=== PATIENT | male | born 1955 | race African-American/Black ===

== ENCOUNTER 2016-04-28 12:28 | Observation (INO) | payer OTHER ==
--- NOTE | 2016-04-28 12:46 | ER Document Report ---
ED Medical Screen (RME) - General Chief Complaint: Leg Swelling Stated Complaint: LEG SWELLING Time seen by provider: 12:42 Mode of Arrival: Wheelchair Information source: Patient Notes: 60-year-old male presents to ED for bilateral leg swelling. He states he went to the [place] on the for an exam and [facility] work[facility] and stated that he needed to go to the emergency room for follow-up for his blood work. He denies diabetes or blood clots. He has a BNP of 134.68 with a normal of 0-60. I have greeted and performed a rapid initial assessment of this patient. A comprehensive ED assessment and evaluation of the patient, analysis of test results and completion of medical decision making process will be conducted by an additional ED providers. Physical Exam - Vital signs Vitals: Temp Pulse Resp BP Pulse Ox 98.4 F 79 18 104/74 100 04/28/16 12:34 04/28/16 12:34 04/28/16 12:34 04/28/16 12:34 04/28/16 12:34 Course - Vital Signs Vital signs: Temp Pulse Resp BP Pulse Ox 98.4 F 79 18 104/74 100 04/28/16 12:34 04/28/16 12:34 04/28/16 12:34 04/28/16 12:34 04/28/16 12:34
[2016-04-28 13:44] LABS: HEMATOCRIT 23.6 % (37.9-51.0); HGB HCT DIFFERENCE -1.1; MEAN CORPUSCULAR HEMOGLOBIN 31.1 pg (27.0-33.4); MEAN CORPUSCULAR HGB CONC 31.8 g/dL (32.0-36.0); MEAN CORPUSCULAR VOLUME 98 fl (80-97); RED BLOOD COUNT 2.42 10^6/uL (4.35-5.55); RED CELL DISTRIBUTION WIDTH 32.6 % (11.5-14.0); WHITE BLOOD COUNT 5.7 10^3/uL (4.0-10.5)
[2016-04-28 13:49] LABS: ALANINE AMINOTRANSFERASE 36 U/L (21-72); ALBUMIN 2.7 g/dL (3.5-5.0); ALKALINE PHOSPHATASE 229 U/L (38-126); ANION GAP 14 (5-19); ASPARTATE AMINO TRANSFERASE 76 U/L (17-59); BILIRUBIN,DIRECT 0.4 mg/dL (0.0-0.3); BILIRUBIN,TOTAL 1.3 mg/dL (0.2-1.3); BLOOD UREA NITROGEN 6 mg/dL (7-20); CALCIUM 8.5 mg/dL (8.4-10.2); CARBON DIOXIDE 26 mmol/L (22-30); CHLORIDE 85 mmol/L (98-107); CREATINE KINASE 30 U/L (55-170); CREATININE RESULT 0.73 mg/dL (0.52-1.25); GLUCOSE 84 mg/dL (75-110); POTASSIUM 4.4 mmol/L (3.6-5.0); SODIUM 125.4 mmol/L (137-145); TOTAL PROTEIN 5.4 g/dL (6.3-8.2)
[2016-04-28 14:01] LABS: CREATINE KINASE MB 0.38 ng/mL (<4.55)
[2016-04-28 14:02] LABS: TROPONIN I < 0.012 ng/mL
[2016-04-28 14:13] LABS: HEMOGLOBIN 7.5 g/dL (13.5-17.0)
[2016-04-28 14:22] LABS: ANISOCYTOSIS 4+; BASOPHILS % (MANUAL) 1 % (0-2); EOSINOPHILS % (MANUAL) 0 % (0-6); HYPOCHROMASIA 1+; LYMPHOCYTES % (MANUAL) 24 % (13-45); TOTAL CELLS COUNTED 100
[2016-04-28 14:23] LABS: POIKILOCYTOSIS 2+; POLYCHROMASIA SLIGHT; ROULEAUX SLIGHT; SCHISTOCYTES 1+; TARGET CELLS SLIGHT
[2016-04-28 14:24] LABS: HOWELL-JOLLY BODIES PRESENT; TOXIC GRANULATION SLIGHT
--- NOTE | 2016-04-28 14:46 | ER Document Report ---
ED General - General Chief Complaint: Leg Swelling Stated Complaint: LEG SWELLING Mode of Arrival: Wheelchair Information source: Patient Notes: Patient presents to the emergency department with complaints of lower extremity swelling. [facility] and told he needed to come to the emergency department because his labs were "all over the place ". Patient presents with a copy of labs completed April 21. Increased doses of Lasix twice. He denies shortness of breath with exertion. Patient denies chest pain difficulty breathing. Reports he's had swelling of his lower extremities for a month. He reports history of anemia high blood pressure knee replacement and ankle and shoulder pain. TRAVEL OUTSIDE OF THE [place] IN LAST 30 DAYS: No - HPI Onset: Other Onset/Duration: Persistent Quality of pain: Pressure Pain Level: 3 Associated symptoms: None Exacerbated by: Denies Relieved by: Denies Similar symptoms previously: Yes Recently seen / treated by doctor: Yes - Related Data Allergies/Adverse Reactions: No Known Allergies Allergy (Unverified 04/28/16 12:45) Past Medical History - General Information source: Patient - Social History Smoking Status: Current Every Day Smoker Cigarette use (# per day): Yes - 02/04 ppd Chew tobacco use (# tins/day): No Frequency of alcohol use: Heavy Drug Abuse: None Lives with: Alone Family History: DM, Thyroid Disfunction Patient has suicidal ideation: No Patient has homicidal ideation: No - Medical History Medical History: Other - anemia - Past Medical History Cardiac Medical History: Reports: Hx Hypertension Renal/ Medical History: Denies: Hx Peritoneal Dialysis Past Surgical History: Reports: Hx Orthopedic Surgery Review of Systems - Review of Systems Notes: Review HPI for review of systems., All other systems negative Physical Exam - Vital signs Vitals: Temp Pulse Resp BP Pulse Ox 98.4 F 79 18 104/74 100 04/28/16 12:34 04/28/16 12:34 04/28/16 12:34 04/28/16 12:34 04/28/16 12:34 - Notes Notes: PHYSICAL EXAMINATION: GENERAL: Well-appearing and in no acute distress nontoxic looking, happy HEAD: Atraumatic, normocephalic. EYES: Pupils equal round extraocular movements intact, sclera anicteric, conjunctiva are normal. ENT: nares patent, Moist mucous membranes. NECK: Normal range of motion, supple without lymphadenopathy LUNGS: CTAB and equal. No wheezes rales or rhonchi. no cough, speaks in clear voice HEART: Regular rate and rhythm without murmurs ABDOMEN: Soft, no tenderness. No guarding, no rebound BACK: Denies pain EXTREMITIES: Normal range of motion, 3+ pitting edema bilaterally from knee down. No cyanosis. NEUROLOGICAL: Cranial nerves grossly intact. Normal sensory/motor PSYCH: Normal mood, normal affect. SKIN: Warm, Dry, normal turgor, facial francois color Course - Re-evaluation Re-evalutation: 04/28/16 15:24 I have consulted the attending provider Dr Thorne per [facility] guidelines I contacted the [place] for previous labs, spoke with echo barber, she reports last h/h 7.6/23.9 yesterday, before that his H&H was 12.3 and 39.4 on May 2015. 04/28/16 16:[address] Damon, he agrees patient should be admitted with type/screen and requested iron studies. Consult to Dr. Gudino who agrees to admit patient to telemetry obs. Patient informed of plan of care. - Vital Signs Vital signs: Temp Pulse Resp BP Pulse Ox 98.4 F 79 18 104/74 100 04/28/16 12:34 04/28/16 12:34 04/28/16 12:34 04/28/16 12:34 04/28/16 12:34 - Laboratory Result Diagrams: 04/28/16 12:50 04/28/16 12:50 Laboratory results interpreted by me: 04/28/16 04/28/16 12:50 12:50 RBC 2.42 L Hgb 7.5 L Hct 23.6 L MCV 98 H MCHC 31.8 L RDW 32.6 H Sodium 125.4 L Chloride 85 L BUN 6 L Direct Bilirubin 0.4 H AST 76 H Alkaline Phosphatase 229 H Creatine Kinase 30 L Total Protein 5.4 L Albumin 2.7 L Discharge - Discharge Clinical Impression: Hyponatremia, bilateral peripheral edema Anemia Qualifiers: Anemia type: unspecified type Qualified Code(s): D64.9 - Anemia, unspecified Condition: Stable Disposition: ADMITTED OBSERVATION Admitting Provider: Hospitalist - Dr. Gudino Unit Admitted: Telemetry
[2016-04-28] MEDS ORDERED: NORMAL SALINE 250 ML IV PRN ×2 (16:35)
[2016-04-28] MEDS ORDERED: LORAZEPAM INJ 2 MG/1 ML VIAL IV PRN (16:36)
[2016-04-28] MEDS ORDERED: ACETAMINOPHEN 325 MG TABLET PO PRN (16:37)
[2016-04-28] MEDS ORDERED: ONDANSETRON HCL INJ/PF 4 MG/2 ML SDV IV PRN (16:37)
[2016-04-28] MEDS ORDERED: TRAMADOL HCL 50 MG TABLET PO PRN (17:14)
[2016-04-28 17:21] LABS: FOLATE 1.79 ng/mL (>2.76)
--- NOTE | 2016-04-28 17:27 | PDOC H&P ---
History of Present Illness Admission Date/PCP: [facility] Patient complains of: Abnormal labs History of Present Illness: CHARLES LEVY is a 60 year old male that was sent to the emergency department from the [facility] in [facility] for abnormal labs. Specifically he has worsening of chronic anemia and also low-sodium. He was also noted to have 1-2 year history of worsening bilateral lower extremity edema for which he takes Lasix 40 mg daily. Patient has no specific complaints. In review of his past history as mentioned he is chronically anemic. He has had Hemoccult-negative stools at both the [facility] and our facility. He has never been scheduled for an EGD or colonoscopy in the past. He has never been told this specific cause of his anemia. He has never seen a field service specialist. He does smoke and drink heavily. He denies weight loss. Medications listed below have not been verified at the time of this documentation. Past Medical History Cardiac Medical History: Reports: Hypertension, Other - Edema Psychiatric Medical History: Reports: Alcohol Dependency, Tobacco Dependency Hematology: Reports: Anemia Past Surgical History Past Surgical History: Reports: Orthopedic Surgery - Right total knee arthroplasty Social History Information Source: Patient Lives with: Spouse/Significant other Smoking Status: Current Every Day Smoker Frequency of Alcohol Use: Heavy Hx Recreational Drug Use: No Hx Prescription Drug Abuse: No - Advance Directive Resuscitation Status: Full Code Surrogate healthcare decision maker:: Family History Family History: DM, Thyroid Disfunction Parental Family History Reviewed: Yes Children Family History Reviewed: Yes Sibling(s) Family History Reviewed.: Yes Medication/Allergy Allergies/Adverse Reactions: No Known Allergies Allergy (Unverified 04/28/16 12:45) Review of Systems Constitutional: ABSENT: chills, fever(s), headache(s), weight gain, weight loss Eyes: ABSENT: visual disturbances Ears: ABSENT: hearing changes Cardiovascular: PRESENT: edema. ABSENT: chest pain, dyspnea on exertion, orthropnea, palpitations Respiratory: ABSENT: cough, hemoptysis Gastrointestinal: ABSENT: abdominal pain, constipation, diarrhea, hematemesis, hematochezia, nausea, vomiting Genitourinary: ABSENT: dysuria, hematuria Musculoskeletal: ABSENT: joint swelling Integumentary: ABSENT: rash, wounds Neurological: PRESENT: other - Occasional sharp shooting pains in all 4 extremities. ABSENT: abnormal gait, abnormal speech, confusion, dizziness, focal weakness, syncope Psychiatric: ABSENT: anxiety, depression, homidical ideation, suicidal ideation Endocrine: ABSENT: cold intolerance, heat intolerance, polydipsia, polyuria Hematologic/Lymphatic: ABSENT: easy bleeding, easy bruising Physical Exam Vital Signs: Temp Pulse Resp BP Pulse Ox 98.4 F 79 18 104/74 100 04/28/16 12:34 04/28/16 12:34 04/28/16 12:34 04/28/16 12:34 04/28/16 12:34 Intake & Output 04/27/16 04/28/16 04/29/16 06:59 06:59 06:59 Weight 94.8 kg PHYSICAL EXAM: GENERAL: Appears well, no acute distress HEENT: Normocephalic, no scleral icterus, conjunctiva clear, EOEM intact, PERRLA , moist mucous membranes NECK: trachea midline, no thyromegally RESPIRATORY: Clear to auscultation, no wheezes/rhonchi CARDIAC: Regular rate and rhythm, no murmur/pat/rub ABDOMEN: Soft, no distension, no tenderness, no guarding, normal bowel sounds, negative Ortega sign RECTAL: deferred : deferred EXTREMITIES: 4+ bilateral lower extremity edema, no calf tenderness MUSCULOSKELETAL: No joint swelling or deformity VASCULAR: normal peripheral pulses NEUROLOGIC: Alert, oriented to person/place/time, normal speech, cranial nerves grossly intact, 5/5 strength in all extremities, tactile sensation intact in all extremities SKIN: No rash, no wounds, no worrisome skin lesions PSYCHIATRIC: Normal mood, flat affect Results Laboratory Results: 04/28/16 12:50 04/28/16 12:50 04/28/16 04/28/16 04/28/16 12:50 12:50 12:50 WBC 5.7 RBC 2.42 L Hgb 7.5 L Hct 23.6 L MCV 98 H MCH 31.1 MCHC 31.8 L RDW 32.6 H Plt Count 231 Seg Neutrophils % Not Reportable Lymphocytes % Not Reportable Monocytes % Not Reportable Eosinophils % Not Reportable Basophils % Not Reportable Absolute Neutrophils Not Reportable Absolute Lymphocytes Not Reportable Absolute Monocytes Not Reportable Absolute Eosinophils Not Reportable Absolute Basophils Not Reportable Retic Count (auto) 1.67 Absolute Retic 0.040 Sodium 125.4 L Potassium 4.4 Chloride 85 L Carbon Dioxide 26 Anion Gap 14 BUN 6 L Creatinine 0.73 Est GFR ( Amer) > 60 Est GFR (Non-Af Amer) > 60 Glucose 84 Calcium 8.5 Total Bilirubin 1.3 AST 76 H ALT 36 Alkaline Phosphatase 229 H Total Protein 5.4 L Albumin 2.7 L Stool Occult Blood 04/28/16 14:36 WBC RBC Hgb Hct MCV MCH MCHC RDW Plt Count Seg Neutrophils % Lymphocytes % Monocytes % Eosinophils % Basophils % Absolute Neutrophils Absolute Lymphocytes Absolute Monocytes Absolute Eosinophils Absolute Basophils Retic Count (auto) Absolute Retic Sodium Potassium Chloride Carbon Dioxide Anion Gap BUN Creatinine Est GFR ( Amer) Est GFR (Non-Af Amer) Glucose Calcium Total Bilirubin AST ALT Alkaline Phosphatase Total Protein Albumin Stool Occult Blood NEGATIVE 04/28/16 04/28/16 04/28/16 12:50 12:50 12:50 Creatine Kinase 30 L CK-MB (CK-2) 0.38 Troponin I < 0.012 NT-Pro-B Natriuret Pep 288 EKG Comments: Sinus rhythm, left anterior fascicular block Impressions: Chest X-Ray 04/28/16 12:46 IMPRESSION: NO SIGNIFICANT RADIOGRAPHIC FINDING IN THE CHEST. Assessment & Plan - Diagnosis (1) Anemia Qualifiers: Anemia type: unspecified type Qualified Code(s): D64.9 - Anemia, unspecified Is this a current diagnosis for this admission?: YesPlan: Patient will be transfused 2 units PRBC. Check anemia panel. Consult Dr. Xie of hematology. Patient probably warrants at least routine endoscopic workups although he is Hemoccult negative. I would imagine his heavy alcohol abuse is contributing. (2) Hyponatremia Is this a current diagnosis for this admission?: YesPlan: Asymptomatic from a neurologic standpoint. Likely secondary to heavy alcohol use. I have counseled patient and his on this. Diuretics may be contributing as well. Check thyroid function studies, urine osmolality, serum osmolality. Start 1500 mL fluid restriction. (3) Hypertension Is this a current diagnosis for this admission?: YesPlan: Continue metoprolol. Counseled on alcohol cessation. (4) Edema Is this a current diagnosis for this admission?: YesPlan: Increase Lasix to 40 mg by mouth twice a day. Check bilateral lower extremity Doppler and echocardiogram. Check TSH. (5) Tobacco abuse Is this a current diagnosis for this admission?: Yes (6) Alcohol abuse Is this a current diagnosis for this admission?: YesPlan: Monitor for signs of withdrawal. Patient is counseled that this may be contributing to anemia, neuropathy, hyponatremia. (7) Neuropathy Is this a current diagnosis for this admission?: Yes - Time Time Spent: Greater than 70 Minutes Anticipated discharge: Home Within: within 24 hours
[2016-04-28 18:01] LABS: FREE T3 2.93 pg/mL (2.77-5.27)
[2016-04-28 18:15] LABS: THYROID STIMULATING HORMONE 4.68 uIU/mL (0.47-4.68)
[2016-04-28] MEDS: LANSOPRAZOLE 30 MG TAB.RAP.DR PO SCH (18:17)
[2016-04-28] MEDS: FUROSEMIDE 40 MG TABLET PO SCH (18:18)
--- NOTE | 2016-04-28 18:42 | EKG REPORT ---
SEVERITY:- ABNORMAL ECG - SINUS RHYTHM LEFT ANTERIOR FASCICULAR BLOCK LOW VOLTAGE THROUGHOUT : Confirmed by: Karla Gutierrez MD 28-Apr-2016 18:41:57
[2016-04-29] MEDS: POTASSIUM CHLORIDE 10 MEQ TABLET.SA PO SCH ×2 (02:08→10:41)
[2016-04-29] MEDS: METOPROLOL SUCCINATE 50 MG TAB.SR.24H PO SCH ×2 (02:09→10:40)
[2016-04-29] MEDS: LANSOPRAZOLE 30 MG TAB.RAP.DR PO SCH (05:31)
[2016-04-29 06:08] LABS: HEMATOCRIT 27.3 % (37.9-51.0); HEMOGLOBIN 9.1 g/dL (13.5-17.0); MEAN CORPUSCULAR HEMOGLOBIN 30.8 pg (27.0-33.4); MEAN CORPUSCULAR HGB CONC 33.2 g/dL (32.0-36.0); RED BLOOD COUNT 2.95 10^6/uL (4.35-5.55); RED CELL DISTRIBUTION WIDTH 29.3 % (11.5-14.0); WHITE BLOOD COUNT 7.2 10^3/uL (4.0-10.5)
[2016-04-29 06:28] LABS: ANION GAP 13 (5-19); BLOOD UREA NITROGEN 7 mg/dL (7-20); CALCIUM 8.5 mg/dL (8.4-10.2); CARBON DIOXIDE 27 mmol/L (22-30); CHLORIDE 89 mmol/L (98-107); CREATININE RESULT 0.72 mg/dL (0.52-1.25); GLUCOSE 104 mg/dL (75-110); POTASSIUM 4.1 mmol/L (3.6-5.0); SODIUM 128.5 mmol/L (137-145)
[2016-04-29 06:40] LABS: MEAN CORPUSCULAR VOLUME 93 fl (80-97)
[2016-04-29 06:51] LABS: MAGNESIUM 0.8 mg/dL (1.6-2.3)
--- NOTE | 2016-04-29 08:21 | PDOC CONSULTATION ---
Consultation Consult Date: 04/29/16 Attending physician:: PABLO DIAZ Consult reason:: Anemia History of Present Illness Admission Date/PCP: 04/28/16 16:37 Patient complains of: Weakness, fatigue, anemia History of Present Illness: 60-year-old male with known history of anemia, he tells me he initially was told about it in late 2014, he has been thus far treated at the [facility], he apparently had a recent right total knee replacement within the last year. He was treated with serial transfusions, he apparently was seen by hematology there at some point in time. He does not remember ever having a bone marrow biopsy. It doesn't sound like he has been on anything like Procrit or Aranesp. He had hemoglobin of 7.5 on admission, iron studies indicated a ferritin of 2000, saturation was normal, B12 was normal, folate was low. He feels better after transfusion now, hemoglobin is up to the 9 range, he really wants to go home. Past Medical History Cardiac Medical History: Reports: Hypertension, Other - Edema Psychiatric Medical History: Reports: Alcohol Dependency, Tobacco Dependency Hematology: Reports: Anemia Past Surgical History Past Surgical History: Reports: Orthopedic Surgery - Right total knee arthroplasty Social History Lives with: Spouse/Significant other Smoking Status: Current Every Day Smoker Frequency of Alcohol Use: Heavy Hx Recreational Drug Use: No Hx Prescription Drug Abuse: No - Advance Directive Resuscitation Status: Full Code Family History Family History: DM, Thyroid Disfunction Parental Family History Reviewed: Yes Children Family History Reviewed: Yes Sibling(s) Family History Reviewed.: Yes Medication/Allergy Home Medications: Ergocalciferol (Vitamin D2) [Vitamin D2] 50,000 unit PO Q7D 04/28/16 Ferrous Sulfate 324 mg PO DAILY 04/28/16 Furosemide [Lasix 40 mg Tablet] 40 mg PO DAILY 04/28/16 Magnesium Oxide [Mag-Ox 400 mg Tablet] 800 mg PO DAILY 04/28/16 Meloxicam [Mobic 15 mg Tablet] 15 mg PO DAILY 04/28/16 Metoprolol Tartrate [Lopressor 50 mg Tablet] 50 mg PO BID 04/28/16 Potassium Chloride [Klor-Con] 20 meq PO DAILY 04/28/16 Tramadol HCl [Ultram 50 mg Tablet] 50 mg PO TIDP PRN 04/28/16 Allergies/Adverse Reactions: No Known Allergies Allergy (Unverified 04/28/16 12:45) Review of Systems Constitutional: PRESENT: fatigue, weakness Cardiovascular: PRESENT: dyspnea on exertion Gastrointestinal: ABSENT: abdominal pain, constipation, diarrhea, hematemesis, hematochezia, nausea, vomiting Musculoskeletal: ABSENT: joint swelling Neurological: ABSENT: abnormal gait, abnormal speech, confusion, dizziness, focal weakness, syncope Endocrine: PRESENT: cold intolerance Physical Exam Vital Signs: Temp Pulse Resp BP Pulse Ox 98.4 F 85 18 142/85 H 100 04/29/16 04:46 04/29/16 04:46 04/29/16 04:46 04/29/16 04:46 04/29/16 04:46 Intake & Output 04/28/16 04/29/16 04/30/16 06:59 06:59 06:59 Intake Total 200 Balance 200 Weight 94.8 kg General appearance: PRESENT: no acute distress, well-developed, well-nourished Head exam: PRESENT: atraumatic, normocephalic Eye exam: PRESENT: conjunctiva pink, EOMI, PERRLA. ABSENT: scleral icterus Ear exam: PRESENT: normal external ear exam Mouth exam: PRESENT: moist, tongue midline Neck exam: ABSENT: carotid bruit, JVD, lymphadenopathy, thyromegaly Respiratory exam: PRESENT: clear to auscultation lashay. ABSENT: rales, rhonchi, wheezes Cardiovascular exam: PRESENT: RRR. ABSENT: diastolic murmur, rubs, systolic murmur Pulses: PRESENT: normal dorsalis pedis pul Vascular exam: PRESENT: normal capillary refill GI/Abdominal exam: PRESENT: normal bowel sounds, soft. ABSENT: distended, guarding, mass, organolmegaly, rebound, tenderness Rectal exam: PRESENT: deferred Extremities exam: PRESENT: full ROM. ABSENT: calf tenderness, clubbing, pedal edema Neurological exam: PRESENT: alert, awake, oriented to person, oriented to place , oriented to time, oriented to situation, CN II-XII grossly intact. ABSENT: motor sensory deficit Psychiatric exam: PRESENT: appropriate affect, normal mood. ABSENT: homicidal ideation, suicidal ideation Skin exam: PRESENT: dry, intact, warm. ABSENT: cyanosis, rash Results Laboratory Results: 04/29/16 05:36 04/29/16 05:36 04/28/16 04/29/16 04/29/16 17:25 05:36 05:36 WBC 7.2 RBC 2.95 L Hgb 9.1 L Hct 27.3 L MCV 93 D MCH 30.8 MCHC 33.2 RDW 29.3 H Plt Count 180 Sodium 128.5 L Potassium 4.1 Chloride 89 L Carbon Dioxide 27 Anion Gap 13 BUN 7 Creatinine 0.72 Est GFR ( Amer) > 60 Est GFR (Non-Af Amer) > 60 Glucose 104 Calcium 8.5 Magnesium 0.8 L* Blood Type O POSITIVE Antibody Screen NEGATIVE Impressions: Venous Doppler Study 04/28/16 00:00 IMPRESSION: NO EVIDENCE DVT OR SVT IN EITHER LEG. SUBCUTANEOUS EDEMA BILATERALLY. Chest X-Ray 04/28/16 12:46 IMPRESSION: NO SIGNIFICANT RADIOGRAPHIC FINDING IN THE CHEST. Assessment & Plan - Diagnosis (1) Anemia of chronic disease Is this a current diagnosis for this admission?: YesPlan: He appears to have anemia of some chronic disease, his ferritin is elevated but he has had multiple transfusions, I don't know if initially the ferritin was elevated prior to any transfusions. Regardless, he would benefit from VANNESSA support, so I will give him Procrit 1 dose today. Ultimately I think he would benefit from a bone marrow biopsy, but he is a [place] only patient. He needs a fee basis to be able to see us. I have given him my name and information, to give to his [place] outpatient physician, and they can refer him to us. I believe from a hematologic standpoint he could be discharged. - Time Time Spent: Greater than 70 Minutes Critical Time spent with patient: 35 or more minutes Anticipated discharge: Home Within: within 24 hours
[2016-04-29] MEDS: MAGNESIUM SULFATE/D5W 1 GM/100 ML RTUPB IV SCH ×2 (09:00→10:41)
--- NOTE | 2016-04-29 09:26 | XCELERA REPORT ---
[address] [address] Transthoracic Echocardiogram Report Name: CHARLES LEVY Age: 60 yrs Gender: Male : 1955 Patient Status: Inpatient Patient Location: \S\[facility]\S\A Study Date: 04/28/2016 08:36 PM Height: 68 in Weight: 208 lb BSA: 2.1 m2 Procedure: A complete two-dimensional transthoracic echocardiogram was performed (2D, M-mode, spectral and color flow Doppler). The study was technically adequate with some images being suboptimal in quality. Reason For Study: edema Ordering Physician: CHARLES ESCALANTE Performed By: Coral Mejia Interpretation Summary The left ventricular ejection fraction is normal. There is mild concentric left ventricular hypertrophy. The left ventricle is grossly normal size. LV diastolic function could not be adequately assessed. Wall motion cannot be accurately commented on, but no definite regional wall motion abnormalities noted. The right ventricular systolic function is normal. The left atrial size is normal. There is a trace amount of mitral regurgitation There is no mitral valve stenosis. No aortic regurgitation is present. There is no aortic valve stenosis There is no tricuspid stenosis. No tricuspid regurgitation. The aortic root is not well visualized but is probably normal size. The inferior vena cava was not well visualized There is no pericardial effusion. MMode/2D Measurements \T\ Calculations RVDd: 3.1 cm LVIDd: 3.9 cm FS: 40.1 % Ao root diam: 3.0 cm IVSd: 1.1 cm LVIDs: 2.3 cm EDV(Teich): 65.8 ml LVPWd: 1.1 cm ESV(Teich): 18.8 ml Ao root area: 7.0 cm2 EF(Teich): 71.4 % LA dimension: 3.3 cm LVOT diam: 2.1 cm LVOT area: 3.4 cm2 Doppler Measurements \T\ Calculations MV E max ken: MV P1/2t max ken: Ao V2 max: LV V1 max P.9 cm/sec 81.9 cm/sec 114.5 cm/sec 3.8 mmHg MV A max ken: MV P1/2t: 64.7 msec Ao max PG: LV V1 max: 68.6 cm/sec MVA(P1/2t): 3.4 cm2 5.2 mmHg 97.7 cm/sec MV E/A: 1.2 MV dec slope: VALENCIA(V,D): 2.9 cm2 370.8 cm/sec2 MV dec time: 0.22 sec PA V2 max: 78.0 cm/sec PA max P.4 mmHg Left Ventricle The left ventricle is grossly normal size. There is mild concentric left ventricular hypertrophy. The left ventricular ejection fraction is normal. LV diastolic function could not be adequately assessed. Wall motion cannot be accurately commented on, but no definite regional wall motion abnormalities noted. Right Ventricle The right ventricle is normal in size, thickness and function. There is normal right ventricular wall thickness. The right ventricular systolic function is normal. Atria The right atrium is normal in size. The left atrial size is normal. Interarterial septum not well visualized and not well dopplered. Cannot comment on ASD/PFO presence. Mitral Valve The mitral valve is grossly normal. There is no mitral valve stenosis. There is a trace amount of mitral regurgitation. Aortic Valve The aortic valve is grossly normal. There is no aortic valve stenosis. No aortic regurgitation is present. Tricuspid Valve The tricuspid valve is not well visualized, but is grossly normal. There is no tricuspid stenosis. No tricuspid regurgitation. Pulmonic Valve The pulmonic valve is not well visualized. Great Vessels The aortic root is not well visualized but is probably normal size. The inferior vena cava was not well visualized. Effusions There is no pericardial effusion. : CHARLES ESCALANTE Shyamal
[2016-04-29] MEDS ORDERED: MAGNESIUM OXIDE 400 MG TABLET PO SCH ×2 (10:00)
[2016-04-29] MEDS ORDERED: FERROUS SULFATE 325 MG TABLET PO SCH (10:00)
[2016-04-29] MEDS ORDERED: EPOETIN ALFA INJ 40000 UNIT/1 ML (ONCOLOGY) SUBCUT ONE (10:00)
[2016-04-29] MEDS: FUROSEMIDE 40 MG TABLET PO SCH (10:39)
[2016-04-29 11:27] VITALS: BP 141/89
--- NOTE | 2016-04-29 14:22 | PDOC DISCHARGE SUMMARY ---
General - Admit/Disc Date/PCP Admission Date/Primary Care Provider: 04/28/16 16:37 Discharge Date: 04/29/16 - Discharge Diagnosis (1) Anemia Is this a current diagnosis for this admission?: Yes (2) Hyponatremia Is this a current diagnosis for this admission?: Yes (3) Hypertension Is this a current diagnosis for this admission?: Yes (4) Edema Is this a current diagnosis for this admission?: Yes (5) Tobacco abuse Is this a current diagnosis for this admission?: Yes (6) Alcohol abuse Is this a current diagnosis for this admission?: Yes (7) Neuropathy Is this a current diagnosis for this admission?: Yes (8) Hypomagnesemia Is this a current diagnosis for this admission?: Yes - Additional Information Resuscitation Status: Full Code Discharge Diet: Regular, Cardiac - 1500 mL fluid restriction Discharge Activity: Activity As Tolerated Home Medications: Ergocalciferol (Vitamin D2) [Vitamin D2] 50,000 unit PO Q7D 04/28/16 Ferrous Sulfate 324 mg PO DAILY 04/28/16 Furosemide [Lasix 40 mg Tablet] 40 mg PO DAILY 04/28/16 Meloxicam [Mobic 15 mg Tablet] 15 mg PO DAILY 04/28/16 Metoprolol Tartrate [Lopressor 50 mg Tablet] 50 mg PO BID 04/28/16 Potassium Chloride [Klor-Con] 20 meq PO DAILY 04/28/16 Tramadol HCl [Ultram 50 mg Tablet] 50 mg PO TIDP PRN 04/28/16 Acetaminophen [Tylenol 325 mg Tablet] 650 mg PO Q4HP PRN tablet 04/29/16 Lansoprazole [Prevacid 30 mg Odt Tablet] 30 mg PO DAILY #30 tab.rap. 04/29/16 Magnesium Oxide [Mag-Ox 400 mg Tablet] 800 mg PO BID #120 tablet 04/29/16 History of Present Illness Patient complains of: Abnormal labs History of Present Illness: CHARLES LEVY is a 60 year old male that was sent to the emergency department from the [facility] in [facility] for abnormal labs. Specifically he has worsening of chronic anemia and also low-sodium. He was also noted to have 1-2 year history of worsening bilateral lower extremity edema for which he takes Lasix 40 mg daily. Patient has no specific complaints. In review of his past history as mentioned he is chronically anemic. He has had Hemoccult-negative stools at both the [place] [facility] and our facility. He has never been scheduled for an EGD or colonoscopy in the past. He has never been told this specific cause of his anemia. He has never seen a culinary arts teacher. He does smoke and drink heavily. He denies weight loss. Hospital Course Hospital Course: Patient was admitted for anemia and hyponatremia. With regard to the anemia he was transfused 2 units of blood. He was seen by Dr. Xie of hematology and diagnosed with anemia of chronic disease. He was given one dose of Procrit. He will need to see hematology as an outpatient and this will have to be arranged by the [place] system. Patient is also recommended to have routine colonoscopy as part of anemia workup although he was Hemoccult negative. Given history of heavy alcohol abuse he would probably benefit from EGD as well. He is advised to discontinue alcohol use as this may be associated with anemia, neuropathy, hyponatremia. With regard to hyponatremia this is likely associated with Lasix administration and heavy alcohol intake. Patient is placed on 1500 mL fluid restriction and advised to discontinue alcohol. He is to continue Lasix for edema. With regard to edema patient had echocardiogram that was essentially normal. He had bilateral lower extremity Dopplers that were negative for DVT. He is continued on Lasix and placed on fluid restriction. Physical Exam Vital Signs: Temp Pulse Resp BP Pulse Ox 98.1 F 81 20 141/89 H 100 04/29/16 13:11 04/29/16 13:11 04/29/16 13:11 04/29/16 13:11 04/29/16 13:11 Intake & Output 04/28/16 04/29/16 04/30/16 06:59 06:59 06:59 Intake Total 200 500 Balance 200 500 Weight 94.8 kg GENERAL: No acute distress HEENT: Conjunctiva clear, nonicteric, moist mucous membranes, no JVD, midline trachea RESPIRATORY: Clear to auscultation bilaterally, no wheezes, no rhonchi CARDIAC: Regular rate and rhythm, no murmurs/gallops/rubs ABDOMEN: Soft, nondistended, nontender, positive bowel sounds, no rebound, no guarding EXTREMETIES: Pitting edema bilateral lower extremities NEUROLOGIC: Alert, oriented to person/place/time, CN's grossly intact, no focal deficits SKIN: No rash, wounds PSYCH: Normal mood, normal affect Results Laboratory Results: 04/29/16 05:36 04/29/16 05:36 04/28/16 04/28/16 04/29/16 17:25 19:45 05:36 WBC 7.2 RBC 2.95 L Hgb 9.1 L Hct 27.3 L MCV 93 D MCH 30.8 MCHC 33.2 RDW 29.3 H Plt Count 180 Sodium Potassium Chloride Carbon Dioxide Anion Gap BUN Creatinine Est GFR ( Amer) Est GFR (Non-Af Amer) Glucose Calcium Magnesium Urine Osmolality Cancelled Blood Type O POSITIVE Antibody Screen NEGATIVE 04/29/16 05:36 WBC RBC Hgb Hct MCV MCH MCHC RDW Plt Count Sodium 128.5 L Potassium 4.1 Chloride 89 L Carbon Dioxide 27 Anion Gap 13 BUN 7 Creatinine 0.72 Est GFR ( Amer) > 60 Est GFR (Non-Af Amer) > 60 Glucose 104 Calcium 8.5 Magnesium 0.8 L* Urine Osmolality Blood Type Antibody Screen Labs- Last Values WBC 7.2 10^3/uL (4.0-10.5) 04/29/16 05:36 RBC 2.95 10^6/uL (4.35-5.55) L 04/29/16 05:36 Hgb 9.1 g/dL (13.5-17.0) L 04/29/16 05:36 Hct 27.3 % (37.9-51.0) L 04/29/16 05:36 MCV 93 fl (80-97) D 04/29/16 05:36 MCH 30.8 pg (27.0-33.4) 04/29/16 05:36 MCHC 33.2 g/dL (32.0-36.0) 04/29/16 05:36 RDW 29.3 % (11.5-14.0) H 04/29/16 05:36 Plt Count 180 10^3/uL (150-450) 04/29/16 05:36 Total Counted 100 04/28/16 12:50 Seg Neutrophils % Not Reportable 04/28/16 12:50 Seg Neuts % (Manual) 72 % (42-78) 04/28/16 12:50 Lymphocytes % Not Reportable 04/28/16 12:50 Lymphocytes % (Manual) 24 % (13-45) 04/28/16 12:50 Monocytes % Not Reportable 04/28/16 12:50 Monocytes % (Manual) 3 % (3-13) 04/28/16 12:50 Eosinophils % Not Reportable 04/28/16 12:50 Eosinophils % (Manual) 0 % (0-6) 04/28/16 12:50 Basophils % Not Reportable 04/28/16 12:50 Basophils % (Manual) 1 % (0-2) 04/28/16 12:50 Absolute Neutrophils Not Reportable 04/28/16 12:50 Abs Neuts (Manual) 4.1 10^3/uL (1.7-8.2) 04/28/16 12:50 Absolute Lymphocytes Not Reportable 04/28/16 12:50 Abs Lymphs (Manual) 1.4 10^3/uL (0.5-4.7) 04/28/16 12:50 Absolute Monocytes Not Reportable 04/28/16 12:50 Abs Monocytes (Manual) 0.2 10^3/uL (0.1-1.4) 04/28/16 12:50 Absolute Eosinophils Not Reportable 04/28/16 12:50 Absolute Eos (Manual) 0.0 10^3/uL (0.0-0.6) 04/28/16 12:50 Absolute Basophils Not Reportable 04/28/16 12:50 Abs Basophils (Manual) 0.1 10^3/uL (0.0-0.2) 04/28/16 12:50 Toxic Granulation SLIGHT 04/28/16 12:50 Platelet Comment ADEQUATE 04/28/16 12:50 Polychromasia SLIGHT 04/28/16 12:50 Hypochromasia 1+ 04/28/16 12:50 Poikilocytosis 2+ 04/28/16 12:50 Anisocytosis 4+ 04/28/16 12:50 Pappenheimer Bodies PRESENT 04/28/16 12:50 Target Cells SLIGHT 04/28/16 12:50 [place] Bodies PRESENT 04/28/16 12:50 Rouleaux SLIGHT 04/28/16 12:50 Schistocytes 1+ 04/28/16 12:50 RBC Morph Comment 04/28/16 12:50 Retic Count (auto) 1.67 % (0.66-2.85) 04/28/16 12:50 Absolute Retic 0.040 10^6/uL (0.028-0.122) 04/28/16 12:50 Sodium 128.5 mmol/L (137-145) L 04/29/16 05:36 Potassium 4.1 mmol/L (3.6-5.0) 04/29/16 05:36 Chloride 89 mmol/L (98-107) L 04/29/16 05:36 Carbon Dioxide 27 mmol/L (22-30) 04/29/16 05:36 Anion Gap 13 (5-19) 04/29/16 05:36 BUN 7 mg/dL (7-20) 04/29/16 05:36 Creatinine 0.72 mg/dL (0.52-1.25) 04/29/16 05:36 Est GFR ( Amer) > 60 (>60) 04/29/16 05:36 Est GFR (Non-Af Amer) > 60 (>60) 04/29/16 05:36 Glucose 104 mg/dL (75-110) 04/29/16 05:36 Serum Osmolality 318 mOsm/kg (275-301) H 04/28/16 12:50 Calcium 8.5 mg/dL (8.4-10.2) 04/29/16 05:36 Magnesium 0.8 mg/dL (1.6-2.3) L* 04/29/16 05:36 Iron 158 ug/dL (49-181) 04/28/16 12:50 TIBC 198 ug/dL (250-450) L 04/28/16 12:50 % Saturation 80 % 04/28/16 12:50 Ferritin 2890.00 ng/mL (17.9-464.0) H 04/28/16 12:50 Total Bilirubin 1.3 mg/dL (0.2-1.3) 04/28/16 12:50 Direct Bilirubin 0.4 mg/dL (0.0-0.3) H 04/28/16 12:50 AST 76 U/L (17-59) H 04/28/16 12:50 ALT 36 U/L (21-72) 04/28/16 12:50 Alkaline Phosphatase 229 U/L (38-126) H 04/28/16 12:50 Creatine Kinase 30 U/L (55-170) L 04/28/16 12:50 CK-MB (CK-2) 0.38 ng/mL (<4.55) 04/28/16 12:50 Troponin I < 0.012 ng/mL 04/28/16 12:50 NT-Pro-B Natriuret Pep 288 pg/mL (5-900) 04/28/16 12:50 Total Protein 5.4 g/dL (6.3-8.2) L 04/28/16 12:50 Albumin 2.7 g/dL (3.5-5.0) L 04/28/16 12:50 Vitamin B12 732.0 pg/mL (239-931) 04/28/16 12:50 Folate 1.79 ng/mL (>2.76) L 04/28/16 12:50 TSH 4.68 uIU/mL (0.47-4.68) 04/28/16 12:50 Free T4 1.42 ng/dL (0.78-2.19) 04/28/16 12:50 Free T3 pg/mL 2.93 pg/mL (2.77-5.27) 04/28/16 12:50 Urine Osmolality Cancelled 04/28/16 19:45 Stool Occult Blood NEGATIVE (NEGATIVE) 04/28/16 14:36 Blood Type O POSITIVE 04/28/16 17:25 Blood Type Confirm O POSITIVE 04/28/16 18:40 Antibody Screen NEGATIVE 04/28/16 17:25 Crossmatch See Detail 04/28/16 17:25 Impressions: Venous Doppler Study 04/28/16 00:00 IMPRESSION: NO EVIDENCE DVT OR SVT IN EITHER LEG. SUBCUTANEOUS EDEMA BILATERALLY. Chest X-Ray 04/28/16 12:46 IMPRESSION: NO SIGNIFICANT RADIOGRAPHIC FINDING IN THE CHEST. Qualifiers PATEINT BEING DISCHARGED WITH ANY OF THE FOLLOWING DIAGNOSIS?: No Plan Discharge Plan: Follow-up with [place] [facility] for referral to hematology and GI. Time Spent: Less than 30 Minutes
== END 2016-04-29 13:55 | disposition home or self-care (01) ==
LOC: ER 12:28 → EH 16:37 → UNDOADMOB 17:01 → EH 17:01 → 4N 04-29 04:41
PROVIDERS: ADMIT Internal Medicine; ATTEND Internal Medicine
PROC: 30233N1 Transfusion of Nonautologous Red Blood Cells into Peripheral Vein, Percutaneous Approach (ICD-10-PCS; principal; 2016-04-28)
DX: D64.9 Anemia, unspecified (principal); E87.1 Hypo-osmolality and hyponatremia; I10 Essential (primary) hypertension; R60.9 Edema, unspecified; Z72.0 Tobacco use; F10.10 Alcohol abuse, uncomplicated; G62.9 Polyneuropathy, unspecified; E83.42 Hypomagnesemia; Z79.01 Long term (current) use of anticoagulants
CPT/HCPCS: 93005; 99285; 86900; 86901; 36415 ×2; 84439; 82553; 36430; 86850; 82607; 82550; 82728; 82746; 83540; 83550; 83735; 83930; 84443; 85025; 85027; 82272; 85045; 80048; 80053; 84484; 84466; 84481; 86920; 83880; 93306; 93970; 71020; 93010; G0378 ×3; P9016; J3475; J3490; J0885; 83935

== ENCOUNTER 2016-05-11 19:02 | Inpatient (IN) | payer OTHER ==
--- NOTE | 2016-05-11 19:18 | ER Document Report ---
ED Medical Screen (RME) - General Stated Complaint: ABDOMINAL PAIN/BLOOD SUGAR Mode of Arrival: Medic Information source: Patient Notes: Patient with abdominal pain and distention. Patient's Accu-Chek per EMS was 53. Patient was given 12 mg of oral glucose per EMS as well as an amp of D50. Most recent BGL was 197. Patient with bilateral pedal edema, patient normally takes a fluid pill but has not taken it for the past several days. hx: Chronic alcoholism TRAVEL OUTSIDE OF THE [place] IN LAST 30 DAYS: No - Related Data Allergies/Adverse Reactions: No Known Allergies Allergy (Unverified 04/28/16 12:45) Past Medical History - Past Medical History Cardiac Medical History: Reports: Hx Hypertension Renal/ Medical History: Denies: Hx Peritoneal Dialysis Past Surgical History: Reports: Hx Orthopedic Surgery - Right total knee arthroplasty Physical Exam - General General appearance: Alert Notes: cool to touch, patient's speech slow deliberate Course - Re-evaluation Re-evalutation: 05/11/16 20:50 RN giving patient his vital signs, patient hypothermic, Accu-Chek 54, patient hypotensive. Patient brought to trauma bay 1. Report given to Dr. Ridley
[2016-05-11] MEDS ORDERED: DEXTROSE 50%-WATER 25 GM/50 ML DISP.SYRIN IV ONE ×2 (20:51→20:55)
[2016-05-11] MEDS ORDERED: ERTAPENEM SODIUM INJ 1 GM VIAL IV ONE (21:03)
--- NOTE | 2016-05-11 21:08 | ER Document Report ---
ED General - General Stated Complaint: ABDOMINAL PAIN/BLOOD SUGAR Mode of Arrival: Medic Information source: Patient, Relative Notes: 60 yr old male chronic alcoholic presents with with concerns for altered mental status abdominal pain. Patient has never been diagnosed with liver failure notes jaundice TRAVEL OUTSIDE OF THE [place] IN LAST 30 DAYS: No - HPI Onset: Last week Onset/Duration: Worse Quality of pain: Achy Severity: Mild Pain Level: 1 Associated symptoms: Other - Confusion Exacerbated by: Denies Relieved by: Denies Similar symptoms previously: No Recently seen / treated by doctor: No - Related Data Allergies/Adverse Reactions: No Known Allergies Allergy (Unverified 04/28/16 12:45) Past Medical History - General Information source: Patient - Social History Smoking Status: Never Smoker Cigarette use (# per day): No Chew tobacco use (# tins/day): No Smoking Education Provided: No Frequency of alcohol use: Heavy Family History: DM, Thyroid Disfunction - Past Medical History Cardiac Medical History: Reports: Hx Hypertension Renal/ Medical History: Denies: Hx Peritoneal Dialysis Past Surgical History: Reports: Hx Orthopedic Surgery - Right total knee arthroplasty Review of Systems - Review of Systems Notes: REVIEW OF SYSTEMS: CONSTITUTIONAL : Denies fever, chills, or sweats. Denies recent illness. EENT: Denies eye, ear, throat, or mouth pain or symptoms. Denies nasal or sinus congestion or discharge. Denies throat, tongue, or mouth swelling or difficulty swallowing. CARDIOVASCULAR: Denies chest pain. Denies palpitations or racing or irregular heart beat. Denies ankle edema. RESPIRATORY: Denies cough, cold, or chest congestion. Denies shortness of breath, difficulty breathing, or wheezing. GASTROINTESTINAL: Admits to abdominal pain GENITOURINARY: Denies difficulty urinating, painful urination, burning, frequency, blood in urine, or discharge. MUSCULOSKELETAL: Denies back or neck pain or stiffness. Denies joint pain or swelling. SKIN: Denies rash, lesions or sores. HEMATOLOGIC : Denies easy bruising or bleeding. LYMPHATIC: Denies swollen, enlarged glands. NEUROLOGICAL: Admits to confusion PSYCHIATRIC: Denies anxiety or stress. Denies depression, suicidal ideation, or homicidal ideation. ALL OTHER SYSTEMS REVIEWED AND NEGATIVE. Dictation was performed using [employer] voice recognition software PHYSICAL EXAMINATION: GENERAL: Ill-appearing male moderate distress HEAD: Atraumatic, normocephalic. EYES: Pupils equal round and reactive to light, extraocular movements intact, jaundice ENT: Nares patent, oropharynx clear without exudates. Moist mucous membranes. NECK: Normal range of motion, supple without lymphadenopathy LUNGS: Breath sounds clear to auscultation bilaterally and equal. No wheezes rales or rhonchi. HEART: Regular rate and rhythm without murmurs ABDOMEN: Abdomen is significantly distended fluid level noted Musculoskeletal: Normal range of motion, no pitting or edema. No cyanosis. NEUROLOGICAL: pt is altreed PSYCH: Normal mood, normal affect. SKIN: jaundiced Course - Re-evaluation Re-evalutation: 05/11/16 21:04 large ascites noted on bedside ultrasound, will start invanz for sbp 05/11/16 21:05 obvious concern for acute liver failure 05/11/16 21:08 05/11/16 22:26 hyperammonia noted, lactic acid is 18 05/11/16 23:05 pt noted ot have renal failure, ativan and lactulose, started on invanz for probable SBP , will admit to hospitalist - Laboratory Result Diagrams: 05/11/16 21:15 05/11/16 21:15 Laboratory results interpreted by me: 05/11/16 05/11/16 05/11/16 21:15 21:15 21:15 RBC 2.68 L Hgb 8.5 L Hct 26.7 L MCV 100 H D MCHC 31.6 L RDW 31.0 H PT 22.6 H Sodium 128.2 L Potassium 5.4 H Chloride 89 L Carbon Dioxide 13 L Anion Gap 26 H Creatinine 2.17 H Est GFR ( Amer) 38 L Est GFR (Non-Af Amer) 31 L Glucose 159 H Lactic Acid Total Bilirubin 6.2 H Direct Bilirubin 3.5 H AST 121 H Alkaline Phosphatase 177 H Ammonia Total Protein 5.4 L Albumin 2.3 L 05/11/16 05/11/16 21:15 21:15 RBC Hgb Hct MCV MCHC RDW PT Sodium Potassium Chloride Carbon Dioxide Anion Gap Creatinine Est GFR ( Amer) Est GFR (Non-Af Amer) Glucose Lactic Acid 18.4 H Total Bilirubin Direct Bilirubin AST Alkaline Phosphatase Ammonia 40.8 H Total Protein Albumin - Diagnostic Test Radiology reviewed: Image reviewed, Reports reviewed Critical Care Note - Critical Care Note Total time excluding time spent on procedures (mins): 55 Comments: 55 minutes of critical care time spent in direct contact evaluating and reevaluating the patient, treating symptoms, reviewing labs and studies and speaking with family and consultants excluding any procedures Discharge - Discharge Clinical Impression: Alcohol abuse, Hyperammonemia, Hyponatremia Acute liver failure Qualifiers: Hepatic coma status: with hepatic coma Qualified Code(s): K72.01 - Acute and subacute hepatic failure with coma Acute renal failure Qualifiers: Acute renal failure type: unspecified Qualified Code(s): N17.9 - Acute kidney failure, unspecified Ascites Qualifiers: Ascites type: other type Qualified Code(s): R18.8 - Other ascites Condition: Serious Disposition: ADMITTED INPATIENT Admitting Provider: Hospitalist Unit Admitted: ICU
[2016-05-11 21:47] LABS: ABSOLUTE MONOCYTES (AUTO) 0.2 10^3/uL (0.1-1.4); ABSOLUTE NEUT (AUTO) 3.5 10^3/uL (1.7-8.2); BASOPHILS % (AUTO) 0.2 % (0-2); EOSINOPHILS % (AUTO) 0.2 % (0-6); HEMATOCRIT 26.7 % (37.9-51.0); HEMOGLOBIN 8.5 g/dL (13.5-17.0); HGB HCT DIFFERENCE -1.2; LYMPHOCYTES % (AUTO) 21.9 % (13-45); MEAN CORPUSCULAR HEMOGLOBIN 31.5 pg (27.0-33.4); MEAN CORPUSCULAR HGB CONC 31.6 g/dL (32.0-36.0); MONOCYTES % (AUTO) 3.4 % (3-13); RED BLOOD COUNT 2.68 10^6/uL (4.35-5.55); SEGMENTED NEUTROPHILS % (AUTO) 74.3 % (42-78); WHITE BLOOD COUNT 4.7 10^3/uL (4.0-10.5)
[2016-05-11 21:50] LABS: PROTHROMBIN TIME 22.6 SEC (11.4-15.4)
[2016-05-11 22:08] LABS: ALANINE AMINOTRANSFERASE 30 U/L (21-72); ALBUMIN 2.3 g/dL (3.5-5.0); ALKALINE PHOSPHATASE 177 U/L (38-126); ASPARTATE AMINO TRANSFERASE 121 U/L (17-59); BILIRUBIN,DIRECT 3.5 mg/dL (0.0-0.3); BILIRUBIN,TOTAL 6.2 mg/dL (0.2-1.3); BLOOD UREA NITROGEN 13 mg/dL (7-20); CALCIUM 9.8 mg/dL (8.4-10.2); CREATININE RESULT 2.17 mg/dL (0.52-1.25); GLUCOSE 159 mg/dL (75-110); TOTAL PROTEIN 5.4 g/dL (6.3-8.2)
[2016-05-11] MEDS ORDERED: LACTULOSE SYRUP 20 GM/30 ML UDCUP PO ONE (22:20)
[2016-05-11 22:22] LABS: CARBON DIOXIDE 13 mmol/L (22-30); CHLORIDE 89 mmol/L (98-107); MEAN CORPUSCULAR VOLUME 100 fl (80-97); POTASSIUM 5.4 mmol/L (3.6-5.0); SODIUM 128.2 mmol/L (137-145)
[2016-05-11] MEDS ORDERED: LORAZEPAM INJ 2 MG/1 ML VIAL IV ONE (22:22)
[2016-05-11 22:25] LABS: ANISOCYTOSIS 3+; HYPOCHROMASIA 1+; POIKILOCYTOSIS 3+; TARGET CELLS 1+
[2016-05-11 22:26] LABS: ANION GAP 26 (5-19); OVALOCYTES SLIGHT; PLATELET CLUMPS PRESENT; SCHISTOCYTES SLIGHT; TEAR DROP CELLS SLIGHT
[2016-05-11] MEDS: NORMAL SALINE 1000 ML 1,000 ML IV PRN (22:30)
[2016-05-11] MEDS ORDERED: ALBUMIN HUMAN 50 ML IV SCH (23:15)
[2016-05-11] MEDS ORDERED: CEFOXITIN 1 GM/D5W RTU 1 GM/50 ML RTUPB IV SCH (23:15)
[2016-05-11] MEDS ORDERED: ONDANSETRON HCL INJ/PF 4 MG/2 ML SDV IV PRN (23:15)
[2016-05-11] MEDS ORDERED: GLUCAGON,HUMAN RECOMB 1 MG INJ IM PRN (23:22)
[2016-05-11] MEDS ORDERED: DEXTROSE 40% GEL 15 GM TUBE PO PRN ×2 (23:22)
[2016-05-11] MEDS ORDERED: DEXTROSE 50%-WATER 25 GM/50 ML DISP.SYRIN IV PRN (23:22)
[2016-05-11] MEDS ORDERED: INSULIN LISPRO 100 UNIT/ML 3 ML VIAL SUBCUT PRN (23:22)
[2016-05-11] MEDS ORDERED: LORAZEPAM INJ 2 MG/1 ML VIAL ONE ×3 (23:28→23:36)
[2016-05-11] MEDS: DEXTROSE 50%-WATER 25 GM/50 ML DISP.SYRIN IV PRN (23:30)
[2016-05-11] MEDS: DEXTROSE 5%-WATER 250 ML with NOREPINEPHRINE BITARTRATE 4 MG IV PRN ×2 (23:30)
[2016-05-11] MEDS ORDERED: CEFOXITIN 1 GM/D5W RTU 1 GM/50 ML RTUPB IV ONE (23:45)
[2016-05-12] MEDS ORDERED: NOREPINEPHRINE BITARTRATE INJ/PF 4 MG/4 ML SDV IV ONE ×2 (00:12→04:32)
[2016-05-12 00:29] LABS: TROPONIN I < 0.012 ng/mL
[2016-05-12] MEDS: IPRATROPIUM/ALBUTEROL 0.5-2.5 MG/3 ML AMPUL NEB SCH ×3 (00:30→16:39)
[2016-05-12] MEDS ORDERED: SODIUM BICARBONATE 8.4% INJ 50 MEQ/50 ML DISP.SYRIN ONE (00:31)
[2016-05-12] MEDS ORDERED: ETOMIDATE INJ/PF 20 MG/10 ML SDV IV ONE ×2 (00:39→01:38)
[2016-05-12] MEDS ORDERED: FENTANYL CITRATE INJ/PF 100 MCG/2 ML AMPUL ONE (00:49)
[2016-05-12] MEDS ORDERED: MIDAZOLAM 2 MG/2 ML INJ ONE ×2 (00:49→01:14)
[2016-05-12] MEDS ORDERED: PROPOFOL 100 ML IV ONE (00:56)
[2016-05-12] MEDS: NORMAL SALINE 1000 ML 1,000 ML IV PRN ×7 (01:00→05:33)
[2016-05-12] MEDS ORDERED: FENTANYL CITRATE INJ/PF 250 MCG/5 ML AMPULE ONE (01:13)
[2016-05-12] MEDS ORDERED: HYDROMORPHONE HCL INJ/PF 2 MG/ML AMPULE ONE (01:13)
[2016-05-12] MEDS ORDERED: PROPOFOL INJ 200 MG/20 ML VIAL IV ONE (01:14)
--- NOTE | 2016-05-12 01:22 | PDOC CONSULTATION ---
Consultation Consult Date: 05/12/16 Attending physician:: DAYAMI JEREZ Consult reason:: Free air in the peritoneal cavity History of Present Illness Admission Date/PCP: 05/11/16 23:16 History of Present Illness: CHARLES LEVY is a 60 year old male presents emergency department by ground rescue complaining of altered mental status. Please see his admission history and physical examination. Patient was found to have a distended abdomen. CT scan was performed without oral and IV contrast because status, abdominal distention, and profound metabolic acidosis with acute renal insufficiency. This revealed massive free air with pneumatosis intestinalis. The patient was started on IV fluids, and levophed. Surgery was consulted. Patient was admitted to the hospitalist service. Past Medical History Cardiac Medical History: Reports: Hypertension Hematology: Reports: Anemia Past Surgical History Past Surgical History: Reports: Orthopedic Surgery - Right total knee arthroplasty Social History Smoking Status: Never Smoker Frequency of Alcohol Use: Heavy Hx Recreational Drug Use: No Hx Prescription Drug Abuse: No Family History Family History: DM, Thyroid Disfunction Parental Family History Reviewed: No Children Family History Reviewed: NA Sibling(s) Family History Reviewed.: NA Medication/Allergy Home Medications: Ergocalciferol (Vitamin D2) [Vitamin D2] 50,000 unit PO Q7D 04/28/16 Ferrous Sulfate 324 mg PO DAILY 04/28/16 Furosemide [Lasix 40 mg Tablet] 40 mg PO DAILY 04/28/16 Meloxicam [Mobic 15 mg Tablet] 15 mg PO DAILY 04/28/16 Metoprolol Tartrate [Lopressor 50 mg Tablet] 50 mg PO BID 04/28/16 Potassium Chloride [Klor-Con] 20 meq PO DAILY 04/28/16 Tramadol HCl [Ultram 50 mg Tablet] 50 mg PO TIDP PRN 04/28/16 Acetaminophen [Tylenol 325 mg Tablet] 650 mg PO Q4HP PRN tablet 04/29/16 Lansoprazole [Prevacid 30 mg Odt Tablet] 30 mg PO DAILY #30 tab.rap 04/29/16 Magnesium Oxide [Mag-Ox 400 mg Tablet] 800 mg PO BID #120 tablet 04/29/16 Allergies/Adverse Reactions: No Known Allergies Allergy (Unverified 04/28/16 12:45) Physical Exam Vital Signs: Intake & Output 05/10/16 05/11/16 05/12/16 06:59 06:59 06:59 Weight 87 kg General appearance: PRESENT: other - Patient essentially obtunded tensive state , recent sedation with Ativan Head exam: PRESENT: other - Eyes are icteric Mouth exam: PRESENT: other Teeth exam: PRESENT: other - Dentition for poor Neck exam: PRESENT: tracheal deviation - No tracheal deviation Respiratory exam: PRESENT: clear to auscultation lashay Cardiovascular exam: PRESENT: RRR Pulses: PRESENT: other - Absent in feet Musculoskeletal exam: PRESENT: other - Marked lower extremity edema Psychiatric exam: PRESENT: other - Unable to assess due to altered mental status Skin exam: PRESENT: other - Superficial espino to the shoulders Results Impressions: Chest X-Ray 05/11/16 20:47 IMPRESSION: No acute cardiopulmonary findings. Abdomen/Pelvis CT 05/11/16 22:27 IMPRESSION: CT FINDINGS COMPATIBLE WITH BOWEL PERFORATION WHICH EITHER INVOLVES THE TRANSVERSE COLON OR IN ADJACENT LOOP OF SMALL BOWEL WITH THERE IS PNEUMATOSIS AND FREE INTRAPERITONEAL AIR ALONG WITH MILD TO MODERATE ASCITES. SURGICAL CONSULTATION IS RECOMMENDED. ADDITIONAL NOTE MADE OF FLUID WOULD IN SUBCUTANEOUS GAS INVOLVING THE MEDIAL RIGHT UPPER EXTREMITY. CORRELATE WITH PHYSICAL EXAM FINDINGS. SEVERE HEPATIC STEATOSIS. CHOLELITHIASIS. Assessment & Plan - Diagnosis (1) Pneumatosis intestinalis Is this a current diagnosis for this admission?: YesPlan: 1. With free air consistent with intra-abdominal visceral perforation. The patient is obtunded due to multiple reasons including septic shock state, liver insufficiency, and recent medication. His abdomen is distended and appears tender, although the reliability physical exam is limited. Nonetheless, I believe the patient needs exploratory laparotomy. The patient is accompanied by his and sister who are serving as a healthcare power of research attorney. I have explained to them that the patient's risk with and without surgery is very high for cardiovascular collapse, multiorgan system failure and even . I believe they understand, and provided consent to proceed with sports for laparotomy, and necessary surgery. 2. I've been present at bedside in the emergency department during endotracheal intubation, nasogastric tube insertion, and initiation of fluid resuscitation and IV antibiotics and pressor therapy. (2) Acute liver failure Qualifiers: Hepatic coma status: with hepatic coma Qualified Code(s): K72.01 - Acute and subacute hepatic failure with coma Is this a current diagnosis for this admission?: Yes (3) Acute renal failure Qualifiers: Acute renal failure type: unspecified Qualified Code(s): N17.9 - Acute kidney failure, unspecified Is this a current diagnosis for this admission?: Yes (4) Hyponatremia Is this a current diagnosis for this admission?: Yes - Time Time Spent: 30 to 50 Minutes Critical Time spent with patient: 15-24 minutes - Inpatient Certification Medical Necessity: Need For IV Fluids, Need for Pain Control, Need for IV Antibiotics, Need for Surgery - Note: Patient's clinical condition is extremely serious; He has profound metabolic acidosis and electrolyte abnormalities which are now being corrected; however I believe exploratory surgery for what is believed to be free air due to visceral perforation is of utmost urgency.
[2016-05-12] MEDS ORDERED: PROPOFOL 100 ML IV PRN (01:38)
[2016-05-12] MEDS ORDERED: SUCCINYLCHOLINE CHLORIDE INJ 200 MG/10 ML VIAL IV ONE (01:38)
[2016-05-12] MEDS ORDERED: FENTANYL CITRATE INJ/PF 100 MCG/2 ML AMPUL IV ONE (01:38)
[2016-05-12] MEDS ORDERED: MIDAZOLAM HCL 100 ML IV PRN (01:38)
[2016-05-12] MEDS ORDERED: FENTANYL CITRATE INJ/PF 250 MCG/5 ML AMPULE IV ONE (01:38)
[2016-05-12 01:50] LABS: VENOUS BLOOD BASE EXCESS -10.4 mmol/L; VENOUS BLOOD HCO3 18.9 mmol/L (20-32); VENOUS BLOOD PCO2 59.2 mmHg (35-63); VENOUS BLOOD PH 7.12 (7.30-7.42)
--- NOTE | 2016-05-12 04:02 | Operative Report ---
Operative Report DATE OF SURGERY: 05/12/16 PREOPERATIVE DIAGNOSIS: 1. Acute abdomen with visceral perforation. 2. Alcoholic cirrhosis. 3. Acute renal failure POSTOPERATIVE DIAGNOSIS: Same with first portion of duodenal perforation with widespread peritonitis OPERATION: 1. Exploratory laparotomy. 2. Partial omentectomy. 3. Closure of duodenal ulcer perforation. 4. Deployment of multiple abdominal drains after peritoneal washout. 5. Duodenal wall biopsy SURGEON: KOTA SUAREZ ANESTHESIA: GA TISSUE REMOVED OR ALTERED: Portion of duodenal wall COMPLICATIONS: Persisting sepsis ESTIMATED BLOOD LOSS: 70 mL INTRAOPERATIVE FINDINGS: See below PROCEDURE: The patient was evaluated in the emergency department where he remained in septic shock with a distended abdomen. He underwent fluid resuscitation in the emergency department, and an nasogastric tube insertion. Because of widespread pneumoperitoneum consistent with visceral perforation the patient was taken to the operating room for emergent laparotomy and necessary surgery. This was explained to the patient's and sister. They expressed understanding and agreed to Proceed. The patient was taken to the operating room where general anesthesia was induced. The abdomen was exposed, prepped and draped sterile fashion instrumentation set up for open laparotomy. Surgical plan and surgical timeout were conducted. Of note at this time the patient remained on bed, and had a systolic blood pressure of approximately 90. The abdomen was opened through a standard midline incision above and below the umbilicus. Upon entering the peritoneal cavity, there was immediate release of air and a greenish fluid, [id number]. Small abdominal wall vessels were tied off upon entry to minimize bleeding. The falciform ligament was taken down between clamps and 0 Vicryl ties. The abdomen was explored at this point and found to contain a massive amount of what appeared to be gastric and/or small bowel contamination staining. Irrigated the peritoneal cavity as liberally as we could getting above and below the diaphragms bilaterally. It was not immediately apparent where in fact the origination of the hole was because the had expanded to include the hepatoduodenal ligament, and the gastro- duodenal region. The large edematous omentum was creating a mass effect preventing us from taking down to the source of perforation. This reason a portion of the omentum was actually resected to get down to the transverse colon and the inferior portion of the stomach. There was a massive amount of gastric contents in the retrogastric space so the lesser sac was opened again using LigaSure device. Retired gastric contents was evacuated and irrigated. We continued to follow the caitlin plane of dissection up to the duodenum. Adhesions were broken up as well as chunks of inflammatory omentum. We eventually got to the site of perforation which in fact was the first portion of the duodenum. The perforation was a large hole approximately 2-2 and half centimeters diameter oriented diagonally in the first portion of the duodenum. I was able to apply the sucker proximally and distally and confirmed that the lumen was patent in both directions. The irrigate this area out vigorously. I manipulated the nasogastric tube through the lowermost and down past the perforation into the second portion of the duodenum. I now performed a limited biopsy of the duodenal wall which appeared to be normal except for moderate inflammation. Was no clinical evidence of malignancy. We closed the perforation vertically with approximately 8 interrupted 3-0 PDS sutures. The closure was satisfactory and appeared to be bile leak free. We proceeded now to irrigate the peritoneal cavity out with a few more liters of saline braking up all intraloop loculations. Total of 7 L was used to irrigate the peritoneal cavity. Of note bleeding was negligible. Hemostasis throughout the case was excellent. The liver appeared to be cirrhotic but not macronodular ;the patient appeared to be making clot, and he also started to make urine. 3 large Ganga drains were placed #1 right upper quadrant trimmed to the appropriate length and tucked right over the region of the duodenum adjacent to the perforation. The second drain labeled #2 was placed in the left upper quadrant wall and tucked on top of the greater curvature of the stomach. The third drain in the left lower quadrant was trimmed to the appropriate length and tucked into the retro-space on top of the pancreas. Again this was the pocket that had the greatest concentration of contamination. All drains were secured to the skin with 2-0 Prolene suture. Sponge and counts are correct. The abdomen was closed with 2 double-stranded #1 PDS sutures and skin approximating wilver. Patient on procedure well, remained intubated and taken to the ICU in guarded condition.
[2016-05-12] MEDS: DEXTROSE 5%-WATER 250 ML with NOREPINEPHRINE BITARTRATE 4 MG IV PRN ×6 (04:35→21:24)
[2016-05-12] MEDS: NORMAL SALINE 1000 ML 1,000 ML IV SCH ×2 (04:37→05:33)
[2016-05-12] MEDS: MORPHINE SULFATE 10 MG/ML INJ IV PRN ×4 (04:42→11:47)
[2016-05-12] MEDS: FENTANYL CITRATE INJ/PF 100 MCG/2 ML AMPUL IV PRN ×9 (04:42→05:33)
[2016-05-12] MEDS: PROMETHAZINE HCL INJ 25 MG/1 ML VIAL IV PRN ×3 (04:42→05:33)
[2016-05-12 05:29] LABS: APPEARANCE,URINE CLOUDY; BILIRUBIN,URINE SMALL (NEGATIVE); GLUCOSE, URINE NEGATIVE (NEGATIVE); KETONES,URINE NEGATIVE (NEGATIVE); LEUKOCYTE ESTERASE,URINE NEGATIVE (NEGATIVE); NITRITE,URINE NEGATIVE (NEGATIVE); PROTEIN,URINE 30 mg/dL (NEGATIVE); URINE SPECIFIC GRAVITY 1.013; UROBILINOGEN,URINE NEGATIVE mg/dL (<2.0)
[2016-05-12] MEDS: ALBUMIN HUMAN 50 ML IV SCH ×3 (05:36→09:37)
[2016-05-12 05:37] LABS: ALANINE AMINOTRANSFERASE 45 U/L (21-72); ALBUMIN 1.2 g/dL (3.5-5.0); ALKALINE PHOSPHATASE 111 U/L (38-126); ANION GAP 15 (5-19); ASPARTATE AMINO TRANSFERASE 189 U/L (17-59); BILIRUBIN,DIRECT 3.5 mg/dL (0.0-0.3); BILIRUBIN,TOTAL 5.3 mg/dL (0.2-1.3); BLOOD UREA NITROGEN 14 mg/dL (7-20); CALCIUM 7.5 mg/dL (8.4-10.2); CARBON DIOXIDE 20 mmol/L (22-30); CHLORIDE 100 mmol/L (98-107); CREATINE KINASE 51 U/L (55-170); CREATININE RESULT 1.82 mg/dL (0.52-1.25); GLUCOSE 47 mg/dL (75-110); MAGNESIUM 1.3 mg/dL (1.6-2.3); POTASSIUM 4.7 mmol/L (3.6-5.0); SODIUM 134.8 mmol/L (137-145); TOTAL PROTEIN 3.8 g/dL (6.3-8.2)
[2016-05-12 05:50] LABS: CREATINE KINASE MB 1.68 ng/mL (<4.55); TROPONIN I 0.037 ng/mL
[2016-05-12] MEDS ORDERED: CEFOXITIN 1 GM/D5W RTU 1 GM/50 ML RTUPB IV SCH (06:00)
[2016-05-12 06:02] LABS: HEMATOCRIT 25.1 % (37.9-51.0); HEMOGLOBIN 8.3 g/dL (13.5-17.0); HGB HCT DIFFERENCE -0.2; MEAN CORPUSCULAR HEMOGLOBIN 32.1 pg (27.0-33.4); MEAN CORPUSCULAR HGB CONC 33.2 g/dL (32.0-36.0); MEAN CORPUSCULAR VOLUME 97 fl (80-97); RED CELL DISTRIBUTION WIDTH 25.2 % (11.5-14.0); WHITE BLOOD COUNT 3.1 10^3/uL (4.0-10.5)
[2016-05-12] MEDS: DEXTROSE 50%-WATER 25 GM/50 ML DISP.SYRIN IV PRN (06:18)
[2016-05-12] MEDS ORDERED: DEXTROSE 5%-1/2 NORMAL SALINE 1,000 ML IV SCH (06:30)
[2016-05-12] MEDS: MAGNESIUM SULFATE/D5W 1 GM/100 ML RTUPB IV SCH ×2 (06:33→09:36)
[2016-05-12 06:35] LABS: BASOPHILS % (MANUAL) 0 % (0-2); EOSINOPHILS % (MANUAL) 0 % (0-6); LYMPHOCYTES % (MANUAL) 21 % (13-45); TOTAL CELLS COUNTED 100
[2016-05-12 06:39] LABS: ANISOCYTOSIS 3+; HYPOCHROMASIA SLIGHT; POLYCHROMASIA SLIGHT; TOXIC GRANULATION SLIGHT
[2016-05-12 06:40] LABS: BURR CELLS SLIGHT; OVALOCYTES SLIGHT; POIKILOCYTOSIS 1+; SCHISTOCYTES SLIGHT; TARGET CELLS 1+; TEAR DROP CELLS SLIGHT
[2016-05-12 06:42] LABS: BAND NEUTROPHILS % (MANUAL) 18 % (3-5)
--- NOTE | 2016-05-12 08:11 | EKG REPORT ---
SEVERITY:- ABNORMAL ECG - SINUS RHYTHM LOW VOLTAGE IN FRONTAL LEADS PROLONGED QT INTERVAL LATE PRECORDIAL TRANSITION. : Confirmed by: Romeo Perez MD 12-May-2016 08:10:26
--- NOTE | 2016-05-12 09:34 | PDOC H&P ---
History of Present Illness Admission Date/PCP: 05/11/16 23:16 Patient complains of: Altered mental status History of Present Illness: CHARLES LEVY is a 60 year old male with history of alcohol dependence up to half a gallon of rum per day and alcohol withdrawal DTs. Presenting to the emergency room after approximately 24 hours of altered mental status noted by family brought to the emergency room for evaluation. Noted to be obtunded with abdominal distention. CT scan was performed without oral and IV contrast because status, abdominal distention, and profound metabolic acidosis with acute renal insufficiency. This revealed massive free air with pneumatosis intestinalis. The patient was started on IV fluids, and levophed. Surgery was consulted. Patient was admitted to the hospitalist service. Past Medical History Cardiac Medical History: Reports: Hypertension Psychiatric Medical History: Reports: Alcohol Dependency Hematology: Reports: Anemia Past Surgical History Past Surgical History: Reports: Orthopedic Surgery - Right total knee arthroplasty Social History Smoking Status: Never Smoker Frequency of Alcohol Use: Heavy Amount of Alcoholic Beverages Per Day: half-gallon of rum per day Hx Recreational Drug Use: No Hx Prescription Drug Abuse: No - Advance Directive Resuscitation Status: Full Code Family History Family History: DM, Thyroid Disfunction Parental Family History Reviewed: Yes Children Family History Reviewed: Yes Sibling(s) Family History Reviewed.: Yes Medication/Allergy Home Medications: Unobtainable [Unobtainable] 05/12/16 Allergies/Adverse Reactions: No Known Allergies Allergy (Unverified 04/28/16 12:45) Review of Systems ROS unobtainable: Due to mental status Physical Exam Vital Signs: Temp Pulse Resp BP Pulse Ox 98.3 F 96 22 H 94/68 L 100 05/12/16 08:00 05/12/16 09:20 05/12/16 09:20 05/12/16 09:15 05/12/16 09:20 Intake & Output 05/10/16 05/11/16 05/12/16 11:59 11:59 11:59 Intake Total 8900 Output Total 6880 Balance 2019 Weight 94.7 kg General appearance: PRESENT: disheveled, mild distress, obese. ABSENT: cooperative Head exam: PRESENT: atraumatic, normocephalic Eye exam: PRESENT: conjunctiva pink, EOMI, PERRLA. ABSENT: scleral icterus Ear exam: PRESENT: normal external ear exam Mouth exam: PRESENT: dry mucosa, tongue midline Teeth exam: PRESENT: dental caries Neck exam: ABSENT: carotid bruit, JVD, lymphadenopathy, thyromegaly Respiratory exam: PRESENT: accessory muscle use, crackles, symmetrical, tachypnea. ABSENT: chest wall tenderness, rales, retraction, stridor Cardiovascular exam: PRESENT: gallop, RRR, tachycardia. ABSENT: diastolic murmur, rubs, systolic murmur Pulses: PRESENT: normal dorsalis pedis pul Vascular exam: PRESENT: normal capillary refill GI/Abdominal exam: PRESENT: ascites, diminished bowel sounds, firm, hypoactive bowel sounds, rebound. ABSENT: guarding, hernia Rectal exam: PRESENT: deferred Extremities exam: PRESENT: +2 edema Neurological exam: PRESENT: altered Skin exam: PRESENT: dry, intact, warm. ABSENT: cyanosis, rash Results Laboratory Results: 05/12/16 04:56 05/12/16 04:56 05/12/16 05/12/16 05/12/16 01:20 01:23 01:23 WBC RBC Hgb Hct MCV MCH MCHC RDW Plt Count Seg Neutrophils % Lymphocytes % Monocytes % Eosinophils % Basophils % Absolute Neutrophils Absolute Lymphocytes Absolute Monocytes Absolute Eosinophils Absolute Basophils VBG pH 7.12 L* VBG pCO2 59.2 VBG HCO3 18.9 L VBG Base Excess -10.4 Sodium Potassium Chloride Carbon Dioxide Anion Gap BUN Creatinine Est GFR ( Amer) Est GFR (Non-Af Amer) Glucose Lactic Acid 14.4 H Calcium Magnesium Total Bilirubin AST ALT Alkaline Phosphatase Total Protein Albumin Urine Color Urine Appearance Urine pH Ur Specific Martin Urine Protein Urine Glucose (UA) Urine Ketones Urine Blood Urine Nitrite Ur Leukocyte Esterase Urine WBC (Auto) Urine RBC (Auto) Blood Type O POSITIVE Antibody Screen NEGATIVE 05/12/16 05/12/16 05/12/16 04:56 04:56 04:56 WBC 3.1 L RBC 2.60 L Hgb 8.3 L Hct 25.1 L MCV 97 MCH 32.1 MCHC 33.2 RDW 25.2 H Plt Count 123 L Seg Neutrophils % Not Reportable Lymphocytes % Not Reportable Monocytes % Not Reportable Eosinophils % Not Reportable Basophils % Not Reportable Absolute Neutrophils Not Reportable Absolute Lymphocytes Not Reportable Absolute Monocytes Not Reportable Absolute Eosinophils Not Reportable Absolute Basophils Not Reportable VBG pH VBG pCO2 VBG HCO3 VBG Base Excess Sodium 134.8 L Potassium 4.7 Chloride 100 Carbon Dioxide 20 L Anion Gap 15 BUN 14 Creatinine 1.82 H Est GFR ( Amer) 47 L Est GFR (Non-Af Amer) 38 L Glucose 47 L Lactic Acid Calcium 7.5 L Magnesium 1.3 L Total Bilirubin 5.3 H AST 189 H ALT 45 Alkaline Phosphatase 111 Total Protein 3.8 L Albumin 1.2 L Urine Color GERRY Urine Appearance CLOUDY Urine pH 5.0 Ur Specific Martin 1.013 Urine Protein 30 H Urine Glucose (UA) NEGATIVE Urine Ketones NEGATIVE Urine Blood MODERATE H Urine Nitrite NEGATIVE Ur Leukocyte Esterase NEGATIVE Urine WBC (Auto) 26 Urine RBC (Auto) 5 Blood Type Antibody Screen 05/12/16 05/12/16 04:56 04:56 Creatine Kinase 51 L CK-MB (CK-2) 1.68 Troponin I 0.037 Impressions: Abdomen/Pelvis CT 05/11/16 22:27 IMPRESSION: CT FINDINGS COMPATIBLE WITH BOWEL PERFORATION WHICH EITHER INVOLVES THE TRANSVERSE COLON OR IN ADJACENT LOOP OF SMALL BOWEL WITH THERE IS PNEUMATOSIS AND FREE INTRAPERITONEAL AIR ALONG WITH MILD TO MODERATE ASCITES. SURGICAL CONSULTATION IS RECOMMENDED. ADDITIONAL NOTE MADE OF FLUID WOULD IN SUBCUTANEOUS GAS INVOLVING THE MEDIAL RIGHT UPPER EXTREMITY. CORRELATE WITH PHYSICAL EXAM FINDINGS. SEVERE HEPATIC STEATOSIS. CHOLELITHIASIS. Chest X-Ray 05/12/16 00:00 IMPRESSION: SATISFACTORY POSITION OF ENDOTRACHEAL TUBE AND NASOGASTRIC TUBE. RIGHT IJ VENOUS CATHETER IS DEEP WITHIN THE RIGHT ATRIUM. RECOMMEND PULLING BACK APPROXIMATELY 6 CM. OTHERWISE STABLE APPEARANCE THE CHEST. KUB X-Ray 05/12/16 00:00 IMPRESSION: POSTSURGICAL CHANGE WITH NASOGASTRIC TUBE IN PLACE AND ADDITIONAL TUBING OVERLYING THE ABDOMEN PRESUMABLY REPRESENTS SURGICAL DRAINS. CORRELATE WITH EXAM. NO ADDITIONAL UNEXPECTED RADIOPAQUE FOREIGN BODY IDENTIFIED. Assessment & Plan - Diagnosis (1) Pneumatosis intestinalis Is this a current diagnosis for this admission?: YesPlan: Surgery consulted, and pack and a biotics initiated blood cultures obtained (2) Acute liver failure Qualifiers: Hepatic coma status: with hepatic coma Qualified Code(s): K72.01 - Acute and subacute hepatic failure with coma Is this a current diagnosis for this admission?: YesPlan: Multifactorial secondary to severe alcoholism and septic shock will avoid hepatotoxic meds and doses reevaluate chem 12 (3) Acute renal failure Qualifiers: Acute renal failure type: unspecified Qualified Code(s): N17.9 - Acute kidney failure, unspecified Is this a current diagnosis for this admission?: YesPlan: Likely secondary to acute illness of sepsis with shock, fluid challenge, when necessary pressor Avoid nephrotoxic meds and doses reevaluate chemistry (4) Alcohol abuse Is this a current diagnosis for this admission?: YesPlan: Pending alcohol withdrawal DTs on thiamine folate and benzodiazepine - Time Time Spent: 50 to 70 Minutes
[2016-05-12] MEDS ORDERED: MAGNESIUM SULFATE/D5W 1 GM/100 ML RTUPB IV SCH (10:00)
[2016-05-12] MEDS ORDERED: SUCCINYLCHOLINE CHLORIDE INJ 200 MG/10 ML VIAL ONE (10:06)
[2016-05-12 11:08] LABS: PROTHROMBIN TIME 24.3 SEC (11.4-15.4)
[2016-05-12] MEDS: LACTULOSE SYRUP 20 GM/30 ML UDCUP PO SCH ×2 (11:39→21:02)
[2016-05-12] MEDS: THIAMINE HCL 100 MG, FOLIC ACID 1 MG in NORMAL SALINE 50 ML IV SCH (11:44)
[2016-05-12] MEDS: PROPOFOL 100 ML IV PRN ×3 (11:48→18:34)
[2016-05-12] MEDS: ERTAPENEM SODIUM 1 GM in NORMAL SALINE 50 ML IV SCH (11:52)
[2016-05-12] MEDS ORDERED: ROCURONIUM BROMIDE INJ 50 MG/5 ML VIAL IV ONE (12:41)
[2016-05-12 12:51] LABS: HEMATOCRIT 22.1 % (37.9-51.0); HGB HCT DIFFERENCE 0.1; MEAN CORPUSCULAR HEMOGLOBIN 31.4 pg (27.0-33.4); MEAN CORPUSCULAR HGB CONC 33.3 g/dL (32.0-36.0); MEAN CORPUSCULAR VOLUME 94 fl (80-97); RED BLOOD COUNT 2.34 10^6/uL (4.35-5.55); RED CELL DISTRIBUTION WIDTH 20.3 % (11.5-14.0); WHITE BLOOD COUNT 2.5 10^3/uL (4.0-10.5)
[2016-05-12 13:19] LABS: BAND NEUTROPHILS % (MANUAL) 21 % (3-5); BASOPHILS % (MANUAL) 0 % (0-2); EOSINOPHILS % (MANUAL) 0 % (0-6); LYMPHOCYTES % (MANUAL) 32 % (13-45); NUCLEATED RED BLOOD CELLS 3 /100 WBC (0); TOTAL CELLS COUNTED 100
[2016-05-12 13:24] LABS: TARGET CELLS 1+; TOXIC VACUOLATION PRESENT
[2016-05-12 13:25] LABS: ANISOCYTOSIS 2+; HYPOCHROMASIA 1+; OVALOCYTES SLIGHT; POIKILOCYTOSIS 1+; POLYCHROMASIA SLIGHT; SCHISTOCYTES SLIGHT
[2016-05-12 13:26] LABS: HEMOGLOBIN 7.4 g/dL (13.5-17.0)
[2016-05-12 13:48] LABS: PATH REVIEW PATHOLOGIST REVIEWED
--- NOTE | 2016-05-12 14:59 | PDOC PROGRESS REPORT ---
Subjective Progress Note for:: 05/12/16 Subjective:: Hospital course: Per H&P-"CHARLES LEVY is a 60 year old male with history of alcohol dependence up to half a gallon of rum per day and alcohol withdrawal DTs. Presenting to the emergency room after approximately 24 hours of altered mental status noted by family brought to the emergency room for evaluation. Noted to be obtunded with abdominal distention. CT scan was performed without oral and IV contrast because status, abdominal distention, and profound metabolic acidosis with acute renal insufficiency. This revealed massive free air with pneumatosis intestinalis. The patient was started on IV fluids, and levophed. Surgery was consulted. Patient was admitted to the hospitalist service." Patient has since been to the OR with oversew of a large duodenal ulcer resulting in severe peritonitis per my conversation with surgery this morning. He remains intubated on mechanical ventilation, minimally responsive, and in septic shock on norepinephrine at 10 mics, D5 and half-normal saline at 75 mL per hour and currently receiving a normal saline 1 L bolus. He is sedated on Diprivan and and Versed drips. He is receiving Mefoxin 10 for antibiotics. He is also receiving his second unit of packed red blood cells postoperatively. Reason for visit: Follow-up perforated viscus with peritonitis and septic shock Subjective: As above, no new events. Nursing reports minimal urine output of approximately 100-150 ML's postop. Review of systems: Unobtainable due to sedation. Physical Exam Vital Signs: Temp Pulse Resp BP Pulse Ox 98.8 F 95 23 H 105/74 100 05/12/16 12:00 05/12/16 12:00 05/12/16 12:15 05/12/16 12:15 05/12/16 12:41 Intake & Output 05/11/16 05/12/16 05/13/16 06:59 06:59 06:59 Intake Total 8500 788 Output Total 6850 455 Balance 1650 333 Weight 94.7 kg 94.7 kg EXAM GENERAL: NAD; well developed, well nourished; mild obese; sedated HEENT: normocephalic, atraumatic; bilateral conjunctival injection, no scleral icterus; oral mucosa dry; RESPIRATORY: no accessory muscle use, no increased WOB, good air entry bilaterally; no wheezes, rales, rhonchi; no inspiratory crackles; remains on mechanical ventilation CARDIO: no JVD; RRR; no systolic murmur; borderline tachycardia GI: soft; mild distended; no bowel sounds; multiple ROMINA drains in place draining serosanguineous fluid.; no rigidity, involuntary guarding VASCULAR: no carotid bruit; no abdominal bruit; no pallor; 2+ radial, DP pulse ; normal capillary refill EXTREMITIES: no calf tender; no palpable cords in calf; no clubbing, cyanosis ; at least 2+ asymmetric right greater than left pedal edema PSYCH: Unable to assess SKIN: warm; moist; no petechiae; no telengectasias; no jaundice; no rash, very pale NEURO: 2+ patella reflexes Results Laboratory Results: 05/12/16 10:40 05/12/16 04:56 05/12/16 05/12/16 05/12/16 01:20 01:23 01:23 WBC RBC Hgb Hct MCV MCH MCHC RDW Plt Count Seg Neutrophils % Lymphocytes % Monocytes % Eosinophils % Basophils % Absolute Neutrophils Absolute Lymphocytes Absolute Monocytes Absolute Eosinophils Absolute Basophils VBG pH 7.12 L* VBG pCO2 59.2 VBG HCO3 18.9 L VBG Base Excess -10.4 Sodium Potassium Chloride Carbon Dioxide Anion Gap BUN Creatinine Est GFR ( Amer) Est GFR (Non-Af Amer) Glucose Lactic Acid 14.4 H Calcium Magnesium Total Bilirubin AST ALT Alkaline Phosphatase Total Protein Albumin Urine Color Urine Appearance Urine pH Ur Specific [place] Urine Protein Urine Glucose (UA) Urine Ketones Urine Blood Urine Nitrite Ur Leukocyte Esterase Urine WBC (Auto) Urine RBC (Auto) Blood Type O POSITIVE Antibody Screen NEGATIVE 05/12/16 05/12/16 05/12/16 04:56 04:56 04:56 WBC 3.1 L RBC 2.60 L Hgb 8.3 L Hct 25.1 L MCV 97 MCH 32.1 MCHC 33.2 RDW 25.2 H Plt Count 123 L Seg Neutrophils % Not Reportable Lymphocytes % Not Reportable Monocytes % Not Reportable Eosinophils % Not Reportable Basophils % Not Reportable Absolute Neutrophils Not Reportable Absolute Lymphocytes Not Reportable Absolute Monocytes Not Reportable Absolute Eosinophils Not Reportable Absolute Basophils Not Reportable VBG pH VBG pCO2 VBG HCO3 VBG Base Excess Sodium 134.8 L Potassium 4.7 Chloride 100 Carbon Dioxide 20 L Anion Gap 15 BUN 14 Creatinine 1.82 H Est GFR ( Amer) 47 L Est GFR (Non-Af Amer) 38 L Glucose 47 L Lactic Acid Calcium 7.5 L Magnesium 1.3 L Total Bilirubin 5.3 H AST 189 H ALT 45 Alkaline Phosphatase 111 Total Protein 3.8 L Albumin 1.2 L Urine Color GERRY Urine Appearance CLOUDY Urine pH 5.0 Ur Specific [place] 1.013 Urine Protein 30 H Urine Glucose (UA) NEGATIVE Urine Ketones NEGATIVE Urine Blood MODERATE H Urine Nitrite NEGATIVE Ur Leukocyte Esterase NEGATIVE Urine WBC (Auto) 26 Urine RBC (Auto) 5 Blood Type Antibody Screen 05/12/16 10:40 WBC 2.5 L RBC 2.34 L Hgb 7.4 L Hct 22.1 L MCV 94 MCH 31.4 MCHC 33.3 RDW 20.3 H Plt Count 106 L Seg Neutrophils % Not Reportable Lymphocytes % Not Reportable Monocytes % Not Reportable Eosinophils % Not Reportable Basophils % Not Reportable Absolute Neutrophils Not Reportable Absolute Lymphocytes Not Reportable Absolute Monocytes Not Reportable Absolute Eosinophils Not Reportable Absolute Basophils Not Reportable VBG pH VBG pCO2 VBG HCO3 VBG Base Excess Sodium Potassium Chloride Carbon Dioxide Anion Gap BUN Creatinine Est GFR ( Amer) Est GFR (Non-Af Amer) Glucose Lactic Acid Calcium Magnesium Total Bilirubin AST ALT Alkaline Phosphatase Total Protein Albumin Urine Color Urine Appearance Urine pH Ur Specific [place] Urine Protein Urine Glucose (UA) Urine Ketones Urine Blood Urine Nitrite Ur Leukocyte Esterase Urine WBC (Auto) Urine RBC (Auto) Blood Type Antibody Screen 05/12/16 05/12/16 05/12/16 04:56 04:56 10:40 Creatine Kinase 51 L 45 L CK-MB (CK-2) 1.68 Troponin I 0.037 05/12/16 05/12/16 10:40 10:40 Creatine Kinase CK-MB (CK-2) 1.03 Troponin I 0.045 Impressions: Abdomen/Pelvis CT 05/11/16 22:27 IMPRESSION: CT FINDINGS COMPATIBLE WITH BOWEL PERFORATION WHICH EITHER INVOLVES THE TRANSVERSE COLON OR IN ADJACENT LOOP OF SMALL BOWEL WITH THERE IS PNEUMATOSIS AND FREE INTRAPERITONEAL AIR ALONG WITH MILD TO MODERATE ASCITES. SURGICAL CONSULTATION IS RECOMMENDED. ADDITIONAL NOTE MADE OF FLUID WOULD IN SUBCUTANEOUS GAS INVOLVING THE MEDIAL RIGHT UPPER EXTREMITY. CORRELATE WITH PHYSICAL EXAM FINDINGS. SEVERE HEPATIC STEATOSIS. CHOLELITHIASIS. Chest X-Ray 05/12/16 00:00 IMPRESSION: SATISFACTORY POSITION OF ENDOTRACHEAL TUBE AND NASOGASTRIC TUBE. RIGHT IJ VENOUS CATHETER IS DEEP WITHIN THE RIGHT ATRIUM. RECOMMEND PULLING BACK APPROXIMATELY 6 CM. OTHERWISE STABLE APPEARANCE THE CHEST. KUB X-Ray 05/12/16 00:00 IMPRESSION: POSTSURGICAL CHANGE WITH NASOGASTRIC TUBE IN PLACE AND ADDITIONAL TUBING OVERLYING THE ABDOMEN PRESUMABLY REPRESENTS SURGICAL DRAINS. CORRELATE WITH EXAM. NO ADDITIONAL UNEXPECTED RADIOPAQUE FOREIGN BODY IDENTIFIED. Status: Image reviewed by me - Chest x-ray reviewed by me, agree with radiology Assessment & Plan - Diagnosis (1) Perforated duodenal ulcer Is this a current diagnosis for this admission?: YesPlan: With severe peritonitis. Continue broad-spectrum antibiotics with Invanz for intra-abdominal coverage. Case discussed with surgery. He will require prolonged hospital recovery. Likely will require prolonged intubation and mechanical ventilation given the severity of the sepsis, and acidosis, and his heavy alcohol use predisposing to possible withdrawal. (2) Pneumatosis intestinalis Is this a current diagnosis for this admission?: YesPlan: Secondary to the above, as above (3) Septic shock Is this a current diagnosis for this admission?: YesPlan: Continue IV fluid resuscitation hoping to wean off vasopressors. (4) Metabolic acidosis Is this a current diagnosis for this admission?: YesPlan: Severe lactic acidosis secondary to the above. Continue treatment of septic shock. (5) Acute renal failure Qualifiers: Acute renal failure type: unspecified Qualified Code(s): N17.9 - Acute kidney failure, unspecified Is this a current diagnosis for this admission?: YesPlan: Improved with fluid resuscitation. Continue to monitor urine output and serum creatinine. (6) Alcohol abuse Is this a current diagnosis for this admission?: YesPlan: Actual daily consumption is unknown but reportedly has had previous admissions for alcohol withdrawal. (7) Hyponatremia Is this a current diagnosis for this admission?: YesPlan: Improved with treatment of the above. Continue to monitor. (8) Anemia Qualifiers: Anemia type: unspecified type Qualified Code(s): D64.9 - Anemia, unspecified Is this a current diagnosis for this admission?: YesPlan: Likely acute blood loss related to the perforated viscus. Continue to transfuse while in septic shock hoping to get a hematocrit greater than 30. (9) Hypomagnesemia Is this a current diagnosis for this admission?: YesPlan: Likely GI losses, continue to push magnesium greater than 2 with IV replacement - Time Time Spent with patient: 35 or more minutes
[2016-05-12] MEDS ORDERED: MAGNESIUM SULFATE/D5W 1 GM/100 ML RTUPB IV ONE (15:30)
[2016-05-12 18:27] LABS: ARTERIAL BLOOD BASE EXCESS -0.6 mmol/L
[2016-05-12 22:57] LABS: HEMATOCRIT 30.5 % (37.9-51.0); HGB HCT DIFFERENCE 1.3; MEAN CORPUSCULAR HEMOGLOBIN 31.2 pg (27.0-33.4); MEAN CORPUSCULAR HGB CONC 34.6 g/dL (32.0-36.0); RED BLOOD COUNT 3.39 10^6/uL (4.35-5.55); WHITE BLOOD COUNT 4.5 10^3/uL (4.0-10.5)
[2016-05-12 23:02] LABS: HEMOGLOBIN 10.6 g/dL (13.5-17.0); MEAN CORPUSCULAR VOLUME 90 fl (80-97)
[2016-05-12 23:18] LABS: BAND NEUTROPHILS % (MANUAL) 23 % (3-5); BASOPHILS % (MANUAL) 0 % (0-2); EOSINOPHILS % (MANUAL) 0 % (0-6); LYMPHOCYTES % (MANUAL) 13 % (13-45); TOTAL CELLS COUNTED 100
[2016-05-12 23:19] LABS: ANISOCYTOSIS 1+; BURR CELLS SLIGHT; PLATELET CLUMPS PRESENT; POIKILOCYTOSIS 1+; TARGET CELLS 1+; TEAR DROP CELLS SLIGHT; TOXIC GRANULATION SLIGHT
[2016-05-13] MEDS: IPRATROPIUM/ALBUTEROL 0.5-2.5 MG/3 ML AMPUL NEB SCH ×3 (00:05→16:20)
[2016-05-13] MEDS: PROPOFOL 100 ML IV PRN ×6 (00:40→20:18)
[2016-05-13] MEDS: MORPHINE SULFATE 10 MG/ML INJ IV PRN ×4 (00:40→20:47)
[2016-05-13] MEDS ORDERED: PROPOFOL 100 ML IV PRN (01:43)
[2016-05-13] MEDS: RINGERS SOLUTION,LACTATED 1,000 ML IV PRN ×2 (01:57→08:45)
[2016-05-13] MEDS ORDERED: RINGERS SOLUTION,LACTATED 2,000 ML IV ONE (03:17)
[2016-05-13] MEDS: DEXTROSE 5%-WATER 250 ML with NOREPINEPHRINE BITARTRATE 4 MG IV PRN ×8 (04:24→22:52)
[2016-05-13 04:52] LABS: MEAN CORPUSCULAR HEMOGLOBIN 31.3 pg (27.0-33.4); MEAN CORPUSCULAR HGB CONC 34.5 g/dL (32.0-36.0); MEAN CORPUSCULAR VOLUME 91 fl (80-97); WHITE BLOOD COUNT 4.6 10^3/uL (4.0-10.5)
[2016-05-13 05:09] LABS: ALANINE AMINOTRANSFERASE 43 U/L (21-72); ALBUMIN 1.6 g/dL (3.5-5.0); ALKALINE PHOSPHATASE 88 U/L (38-126); ANION GAP 11 (5-19); ASPARTATE AMINO TRANSFERASE 115 U/L (17-59); BILIRUBIN,DIRECT 4.5 mg/dL (0.0-0.3); BILIRUBIN,TOTAL 6.1 mg/dL (0.2-1.3); BLOOD UREA NITROGEN 18 mg/dL (7-20); CALCIUM 7.5 mg/dL (8.4-10.2); CARBON DIOXIDE 23 mmol/L (22-30); CHLORIDE 98 mmol/L (98-107); CREATININE RESULT 1.32 mg/dL (0.52-1.25); GLUCOSE 93 mg/dL (75-110); MAGNESIUM 1.8 mg/dL (1.6-2.3); POTASSIUM 3.8 mmol/L (3.6-5.0); SODIUM 131.7 mmol/L (137-145); TOTAL PROTEIN 4.1 g/dL (6.3-8.2); TRIGLYCERIDES 125 mg/dL (<150)
[2016-05-13 06:10] LABS: BAND NEUTROPHILS % (MANUAL) 15 % (3-5); BASOPHILS % (MANUAL) 0 % (0-2); EOSINOPHILS % (MANUAL) 3 % (0-6); LYMPHOCYTES % (MANUAL) 25 % (13-45); TOTAL CELLS COUNTED 100
[2016-05-13 06:25] LABS: ANISOCYTOSIS 1+; POIKILOCYTOSIS 2+; STOMATOCYTES 1+; TARGET CELLS 2+; TEAR DROP CELLS 1+; TOXIC VACUOLATION PRESENT
[2016-05-13 08:53] LABS: ARTERIAL BLOOD BASE EXCESS 1.1 mmol/L; ARTERIAL BLOOD O2 SATURATION 96.2 % (94-98)
[2016-05-13 10:31] LABS: PROTHROMBIN TIME 20.2 SEC (11.4-15.4)
[2016-05-13] MEDS: LACTULOSE SYRUP 20 GM/30 ML UDCUP PO SCH (11:00)
[2016-05-13] MEDS: THIAMINE HCL 100 MG, FOLIC ACID 1 MG in NORMAL SALINE 50 ML IV SCH (11:04)
[2016-05-13] MEDS: MAGNESIUM SULFATE/D5W 1 GM/100 ML RTUPB IV SCH ×2 (11:04→12:20)
[2016-05-13] MEDS: ERTAPENEM SODIUM 1 GM in NORMAL SALINE 50 ML IV SCH (11:05)
--- NOTE | 2016-05-13 15:25 | PDOC PROGRESS REPORT ---
Subjective Progress Note for:: 05/13/16 Subjective:: Hospital course: Per H&P-"CHARLES LEVY is a 60 year old male with history of alcohol dependence up to half a gallon of rum per day and alcohol withdrawal DTs. Presenting to the emergency room after approximately 24 hours of altered mental status noted by family brought to the emergency room for evaluation. Noted to be obtunded with abdominal distention. CT scan was performed without oral and IV contrast because status, abdominal distention, and profound metabolic acidosis with acute renal insufficiency. This revealed massive free air with pneumatosis intestinalis. The patient was started on IV fluids, and levophed. Surgery was consulted. Patient was admitted to the hospitalist service." Patient has since been to the OR with oversew of a large duodenal ulcer resulting in severe peritonitis per my conversation with surgery May 12. He remains intubated on mechanical ventilation, minimally responsive, and in septic shock on norepinephrine at 12 mics, Ringer's lactate at 150 mL per hour with mean arterial pressures greater than 80, unfortunately his CVP measurements are unreliable for reasons that are not entirely clear at this time but are consistently greater than 50. His I's and O's are +7.5 L. He is sedated on Diprivan. He is receiving Invanz for antibiotics. He has received a total of 4 unit of packed red blood cells postoperatively. Reason for visit: Follow-up perforated viscus with peritonitis and septic shock Subjective: As above, no new events. Nursing reports urine output of approximately 1.7 L overnight. Review of systems: Unobtainable due to sedation. Physical Exam Vital Signs: Temp Pulse Resp BP Pulse Ox 98.4 F 116 H 17 98/63 L 99 05/13/16 14:00 05/13/16 14:00 05/13/16 14:00 05/13/16 14:00 05/13/16 14:00 Intake & Output 05/12/16 05/13/16 05/14/16 06:59 06:59 06:59 Intake Total 8500 41706 Output Total 6850 3350 675 Balance 1651 1488 -675 Weight 94.7 kg 101 kg EXAM GENERAL: NAD; well developed, well nourished; mild obese; sedated HEENT: normocephalic, atraumatic; bilateral conjunctival injection, no scleral icterus; oral mucosa dry; ETT in good position, trachea midline RESPIRATORY: no accessory muscle use, no increased WOB, good air entry bilaterally; no wheezes, rales, rhonchi; no inspiratory crackles; remains on mechanical ventilation with good peak pressures CARDIO: no JVD; RRR; no systolic murmur; borderline tachycardia GI: soft; mild distended; no bowel sounds; multiple ROMINA drains in place draining serosanguineous fluid, approximately 230 ML's overnight.; no rigidity, or involuntary guarding VASCULAR: no carotid bruit; no abdominal bruit; no pallor; 2+ radial, DP pulse ; normal capillary refill EXTREMITIES: no palpable cords in calf; no clubbing, cyanosis; at least 2+ bilateral pedal edema PSYCH: Unable to assess SKIN: warm; moist; no petechiae; no telengectasias; no jaundice; no rash, very pale NEURO: 2+ patella reflexes Results Laboratory Results: 05/13/16 04:30 05/13/16 04:30 05/12/16 05/12/16 05/12/16 01:20 18:04 21:38 WBC Cancelled RBC Cancelled Hgb Cancelled Hct Cancelled MCV Cancelled MCH Cancelled MCHC Cancelled RDW Cancelled Plt Count Cancelled Seg Neutrophils % Cancelled Lymphocytes % Cancelled Monocytes % Cancelled Eosinophils % Cancelled Basophils % Cancelled Absolute Neutrophils Cancelled Absolute Lymphocytes Cancelled Absolute Monocytes Cancelled Absolute Eosinophils Cancelled Absolute Basophils Cancelled Carbonic Acid 1.14 HCO3/H2CO3 Ratio 20:1 ABG pH 7.42 ABG pCO2 37.8 ABG pO2 107.6 H ABG HCO3 23.8 ABG O2 Saturation 98.0 ABG Base Excess -0.6 FiO2 30% Sodium Potassium Chloride Carbon Dioxide Anion Gap BUN Creatinine Est GFR ( Amer) Est GFR (Non-Af Amer) Glucose Lactic Acid Calcium Magnesium Total Bilirubin AST ALT Alkaline Phosphatase Total Protein Albumin Triglycerides Blood Type O POSITIVE Antibody Screen NEGATIVE 05/12/16 05/13/16 05/13/16 22:46 04:30 04:30 WBC 4.5 4.6 RBC 3.39 L 3.20 L Hgb 10.6 L D 10.0 L Hct 30.5 L 29.0 L MCV 90 D 91 MCH 31.2 31.3 MCHC 34.6 34.5 RDW 17.0 H 17.0 H Plt Count 100 L 89 L Seg Neutrophils % Not Reportable Not Reportable Lymphocytes % Not Reportable Not Reportable Monocytes % Not Reportable Not Reportable Eosinophils % Not Reportable Not Reportable Basophils % Not Reportable Not Reportable Absolute Neutrophils Not Reportable Not Reportable Absolute Lymphocytes Not Reportable Not Reportable Absolute Monocytes Not Reportable Not Reportable Absolute Eosinophils Not Reportable Not Reportable Absolute Basophils Not Reportable Not Reportable Carbonic Acid HCO3/H2CO3 Ratio ABG pH ABG pCO2 ABG pO2 ABG HCO3 ABG O2 Saturation ABG Base Excess FiO2 Sodium 131.7 L Potassium 3.8 Chloride 98 Carbon Dioxide 23 Anion Gap 11 BUN 18 Creatinine 1.32 H Est GFR ( Amer) > 60 Est GFR (Non-Af Amer) 56 L Glucose 93 Lactic Acid Calcium 7.5 L Magnesium 1.8 Total Bilirubin 6.1 H AST 115 H ALT 43 Alkaline Phosphatase 88 Total Protein 4.1 L Albumin 1.6 L Triglycerides 125 Blood Type Antibody Screen 05/13/16 05/13/16 04:30 08:30 WBC RBC Hgb Hct MCV MCH MCHC RDW Plt Count Seg Neutrophils % Lymphocytes % Monocytes % Eosinophils % Basophils % Absolute Neutrophils Absolute Lymphocytes Absolute Monocytes Absolute Eosinophils Absolute Basophils Carbonic Acid 1.20 HCO3/H2CO3 Ratio 21:1 ABG pH 7.42 ABG pCO2 40.0 ABG pO2 81.1 ABG HCO3 25.5 ABG O2 Saturation 96.2 ABG Base Excess 1.1 FiO2 25% Sodium Potassium Chloride Carbon Dioxide Anion Gap BUN Creatinine Est GFR ( Amer) Est GFR (Non-Af Amer) Glucose Lactic Acid 4.4 H Calcium Magnesium Total Bilirubin AST ALT Alkaline Phosphatase Total Protein Albumin Triglycerides Blood Type Antibody Screen 05/12/16 05/12/16 05/12/16 04:56 04:56 10:40 Creatine Kinase 51 L 45 L CK-MB (CK-2) 1.68 Troponin I 0.037 05/12/16 05/12/16 10:40 10:40 Creatine Kinase CK-MB (CK-2) 1.03 Troponin I 0.045 ABG looks good no changes indicated. Renal function continues to improve. Blood count continues to drop. Impressions: Abdomen/Pelvis CT 05/11/16 22:27 IMPRESSION: CT FINDINGS COMPATIBLE WITH BOWEL PERFORATION WHICH EITHER INVOLVES THE TRANSVERSE COLON OR IN ADJACENT LOOP OF SMALL BOWEL WITH THERE IS PNEUMATOSIS AND FREE INTRAPERITONEAL AIR ALONG WITH MILD TO MODERATE ASCITES. SURGICAL CONSULTATION IS RECOMMENDED. ADDITIONAL NOTE MADE OF FLUID WOULD IN SUBCUTANEOUS GAS INVOLVING THE MEDIAL RIGHT UPPER EXTREMITY. CORRELATE WITH PHYSICAL EXAM FINDINGS. SEVERE HEPATIC STEATOSIS. CHOLELITHIASIS. Chest X-Ray 05/12/16 00:00 IMPRESSION: SATISFACTORY POSITION OF ENDOTRACHEAL TUBE AND NASOGASTRIC TUBE. RIGHT IJ VENOUS CATHETER IS DEEP WITHIN THE RIGHT ATRIUM. RECOMMEND PULLING BACK APPROXIMATELY 6 CM. OTHERWISE STABLE APPEARANCE THE CHEST. KUB X-Ray 05/12/16 00:00 IMPRESSION: POSTSURGICAL CHANGE WITH NASOGASTRIC TUBE IN PLACE AND ADDITIONAL TUBING OVERLYING THE ABDOMEN PRESUMABLY REPRESENTS SURGICAL DRAINS. CORRELATE WITH EXAM. NO ADDITIONAL UNEXPECTED RADIOPAQUE FOREIGN BODY IDENTIFIED. Status: Imported from [facility] - Reports reviewed previously Assessment & Plan - Diagnosis (1) Perforated duodenal ulcer Is this a current diagnosis for this admission?: YesPlan: With severe peritonitis. Continue broad-spectrum antibiotics with Invanz for intra-abdominal coverage. He will require prolonged hospital recovery. Likely will require prolonged intubation and mechanical ventilation given the severity of the sepsis, and acidosis, and his heavy alcohol use predisposing to possible withdrawal. Awaiting bowel function, consult dietary for TPN recommendations. (2) Pneumatosis intestinalis Is this a current diagnosis for this admission?: YesPlan: As above (3) Septic shock Is this a current diagnosis for this admission?: YesPlan: Improved. Continue IV fluid resuscitation attempting to wean off vasopressors. (4) Metabolic acidosis Is this a current diagnosis for this admission?: YesPlan: Severe lactic acidosis secondary to the above, improved. Continue treatment of septic shock. (5) Acute renal failure Qualifiers: Acute renal failure type: unspecified Qualified Code(s): N17.9 - Acute kidney failure, unspecified Is this a current diagnosis for this admission?: YesPlan: Improved with fluid resuscitation. Continue to monitor urine output and serum creatinine. Avoid nephrotoxic medications where possible. (6) Alcohol abuse Is this a current diagnosis for this admission?: YesPlan: Actual daily consumption of at least a fifth hard liquor daily and reportedly has had previous admissions for alcohol withdrawal and seizures. His reports he starts drinking upon waking and continues throughout the course of the day. (7) Hyponatremia Is this a current diagnosis for this admission?: YesPlan: Improved with treatment of the above, stable. Continue to monitor. (8) Anemia Qualifiers: Anemia type: unspecified type Qualified Code(s): D64.9 - Anemia, unspecified Is this a current diagnosis for this admission?: YesPlan: Likely acute blood loss related to the perforated viscus. Continue to transfuse while in septic shock hoping to get a hematocrit greater than 30. (9) Hypomagnesemia Is this a current diagnosis for this admission?: YesPlan: Likely GI losses, continue to push magnesium greater than 2 with IV replacement (10) DIC (disseminated intravascular coagulation) Is this a current diagnosis for this admission?: YesPlan: Related to the above, INR improving continue to monitor coags and platelets while treating the underlying inciting event. (11) Nutrition disorder Is this a current diagnosis for this admission?: YesPlan: It seems unlikely his bowel function will return any time in the near future, start TPN - Time Time Spent with patient: 35 or more minutes Medications reviewed and adjusted accordingly: Yes Anticipated discharge: Acute Rehab - Plan Summary Plan Summary: Case discussed with his at the bedside, all questions asked and answered to her satisfaction. She seems satisfied with care he is receiving. She would not be surprised if he fails to survive this event.
[2016-05-13] MEDS ORDERED: 1/2 NORMAL SALINE 1,000 ML IV ONE (16:37)
[2016-05-13 17:42] LABS: MEAN CORPUSCULAR VOLUME 91 fl (80-97); WHITE BLOOD COUNT 4.7 10^3/uL (4.0-10.5)
[2016-05-13 17:46] LABS: HEMATOCRIT 30.1 % (37.9-51.0); HEMOGLOBIN 10.5 g/dL (13.5-17.0); HGB HCT DIFFERENCE 1.4; MEAN CORPUSCULAR HEMOGLOBIN 31.7 pg (27.0-33.4); RED BLOOD COUNT 3.31 10^6/uL (4.35-5.55); RED CELL DISTRIBUTION WIDTH 17.5 % (11.5-14.0)
[2016-05-13 17:54] LABS: ANION GAP 9 (5-19); BLOOD UREA NITROGEN 19 mg/dL (7-20); CALCIUM 7.2 mg/dL (8.4-10.2); CARBON DIOXIDE 24 mmol/L (22-30); CHLORIDE 98 mmol/L (98-107); CREATININE RESULT 1.07 mg/dL (0.52-1.25); GLUCOSE 84 mg/dL (75-110); MAGNESIUM 2.1 mg/dL (1.6-2.3); POTASSIUM 3.5 mmol/L (3.6-5.0); SODIUM 131.2 mmol/L (137-145)
[2016-05-13 18:04] LABS: BAND NEUTROPHILS % (MANUAL) 4 % (3-5); BASOPHILS % (MANUAL) 0 % (0-2); EOSINOPHILS % (MANUAL) 3 % (0-6); LYMPHOCYTES % (MANUAL) 18 % (13-45); NUCLEATED RED BLOOD CELLS 1 /100 WBC (0); TOTAL CELLS COUNTED 100
[2016-05-13 18:07] LABS: ANISOCYTOSIS 1+; STOMATOCYTES 1+; TARGET CELLS 2+; TOXIC GRANULATION SLIGHT
[2016-05-13] MEDS ORDERED: PHENYLEPHRINE HCL INJ/PF 10 MG/1 ML SDV ONE (18:50)
[2016-05-13] MEDS: 1/2 NORMAL SALINE 1,000 ML IV PRN ×2 (20:18→22:52)
[2016-05-13] MEDS: CLINDAMYCIN 600 MG/D5W RTU 50 ML IV SCH (21:22)
--- NOTE | 2016-05-13 21:30 | PDOC PROGRESS REPORT ---
Subjective Subjective:: Saw the patient late last night/early this morning as well as in the afternoon. At the time of my first visit, he is doing well: Good urine output, stable blood pressures, weaning down the levophed. Heart rate was consistently under 100. All labs had improved including lactate and BUN and creatinine, except for his LFTs. Later in the day, he was less stable. The Levophed had been turned back up to 12, blood pressures were less stable and occasionally hypotensive as well as tachycardic. He was still making good urine output. Both times his abdominal exam remained approximately the same, distended, drains with serosanguineous output, drain 1 and 2 minimal output, drain 3 with higher volumes. NG tube with gastro-bilious fluid. I spoke with his in person and received more background information on his severe alcoholism and recent self predictions that he would drink himself to . Apparently he drinks 0.5 L of hard alcohol a day. I spoke with the as well as the hospitalist over the phone and we discussed treatment options. He seems to unstable to transfer, and I'm not sure that transferring would yield any benefit. He would not be a candidate for liver transplant, and most likely just need to support him as well as possible and wait for his liver to declare: Either he'll progress into fulminant liver failure and , or he will stabilize. has a medical background and is very aware of the severity of the situation. Poor prognosis. Physical Exam Vital Signs: Temp Pulse Resp BP Pulse Ox 98.4 F 119 H 31 H 87/54 L 96 05/13/16 18:00 05/13/16 18:00 05/13/16 18:46 05/13/16 18:46 05/13/16 18:46 Intake & Output 05/12/16 05/13/16 05/14/16 06:59 06:59 06:59 Intake Total 8500 22727 3498 Output Total 5757 1340 5972 Balance 6967 0915 2022 Weight 94.7 kg 101 kg 101 kg Results Laboratory Results: 05/13/16 16:55 05/13/16 16:55 05/12/16 05/12/16 05/13/16 21:38 22:46 04:30 WBC Cancelled 4.5 4.6 RBC Cancelled 3.39 L 3.20 L Hgb Cancelled 10.6 L D 10.0 L Hct Cancelled 30.5 L 29.0 L MCV Cancelled 90 D 91 MCH Cancelled 31.2 31.3 MCHC Cancelled 34.6 34.5 RDW Cancelled 17.0 H 17.0 H Plt Count Cancelled 100 L 89 L Seg Neutrophils % Cancelled Not Reportable Not Reportable Lymphocytes % Cancelled Not Reportable Not Reportable Monocytes % Cancelled Not Reportable Not Reportable Eosinophils % Cancelled Not Reportable Not Reportable Basophils % Cancelled Not Reportable Not Reportable Absolute Neutrophils Cancelled Not Reportable Not Reportable Absolute Lymphocytes Cancelled Not Reportable Not Reportable Absolute Monocytes Cancelled Not Reportable Not Reportable Absolute Eosinophils Cancelled Not Reportable Not Reportable Absolute Basophils Cancelled Not Reportable Not Reportable Carbonic Acid HCO3/H2CO3 Ratio ABG pH ABG pCO2 ABG pO2 ABG HCO3 ABG O2 Saturation ABG Base Excess FiO2 Sodium Potassium Chloride Carbon Dioxide Anion Gap BUN Creatinine Est GFR ( Amer) Est GFR (Non-Af Amer) Glucose Lactic Acid Calcium Magnesium Total Bilirubin AST ALT Alkaline Phosphatase Total Protein Albumin Triglycerides 05/13/16 05/13/16 05/13/16 04:30 04:30 08:30 WBC RBC Hgb Hct MCV MCH MCHC RDW Plt Count Seg Neutrophils % Lymphocytes % Monocytes % Eosinophils % Basophils % Absolute Neutrophils Absolute Lymphocytes Absolute Monocytes Absolute Eosinophils Absolute Basophils Carbonic Acid 1.20 HCO3/H2CO3 Ratio 21:1 ABG pH 7.42 ABG pCO2 40.0 ABG pO2 81.1 ABG HCO3 25.5 ABG O2 Saturation 96.2 ABG Base Excess 1.1 FiO2 25% Sodium 131.7 L Potassium 3.8 Chloride 98 Carbon Dioxide 23 Anion Gap 11 BUN 18 Creatinine 1.32 H Est GFR ( Amer) > 60 Est GFR (Non-Af Amer) 56 L Glucose 93 Lactic Acid 4.4 H Calcium 7.5 L Magnesium 1.8 Total Bilirubin 6.1 H AST 115 H ALT 43 Alkaline Phosphatase 88 Total Protein 4.1 L Albumin 1.6 L Triglycerides 125 05/13/16 05/13/16 16:55 16:55 WBC 4.7 RBC 3.31 L Hgb 10.5 L Hct 30.1 L MCV 91 MCH 31.7 MCHC 35.0 RDW 17.5 H Plt Count 83 L Seg Neutrophils % Not Reportable Lymphocytes % Not Reportable Monocytes % Not Reportable Eosinophils % Not Reportable Basophils % Not Reportable Absolute Neutrophils Not Reportable Absolute Lymphocytes Not Reportable Absolute Monocytes Not Reportable Absolute Eosinophils Not Reportable Absolute Basophils Not Reportable Carbonic Acid HCO3/H2CO3 Ratio ABG pH ABG pCO2 ABG pO2 ABG HCO3 ABG O2 Saturation ABG Base Excess FiO2 Sodium 131.2 L Potassium 3.5 L Chloride 98 Carbon Dioxide 24 Anion Gap 9 BUN 19 Creatinine 1.07 Est GFR ( Amer) > 60 Est GFR (Non-Af Amer) > 60 Glucose 84 Lactic Acid Calcium 7.2 L Magnesium 2.1 Total Bilirubin AST ALT Alkaline Phosphatase Total Protein Albumin Triglycerides 05/12/16 05/12/16 05/12/16 04:56 04:56 10:40 Creatine Kinase 51 L 45 L CK-MB (CK-2) 1.68 Troponin I 0.037 05/12/16 05/12/16 05/13/16 10:40 10:40 20:09 Creatine Kinase CK-MB (CK-2) 1.03 Troponin I 0.045 0.015 Impressions: Abdomen/Pelvis CT 05/11/16 22:27 IMPRESSION: CT FINDINGS COMPATIBLE WITH BOWEL PERFORATION WHICH EITHER INVOLVES THE TRANSVERSE COLON OR IN ADJACENT LOOP OF SMALL BOWEL WITH THERE IS PNEUMATOSIS AND FREE INTRAPERITONEAL AIR ALONG WITH MILD TO MODERATE ASCITES. SURGICAL CONSULTATION IS RECOMMENDED. ADDITIONAL NOTE MADE OF FLUID WOULD IN SUBCUTANEOUS GAS INVOLVING THE MEDIAL RIGHT UPPER EXTREMITY. CORRELATE WITH PHYSICAL EXAM FINDINGS. SEVERE HEPATIC STEATOSIS. CHOLELITHIASIS. Chest X-Ray 05/12/16 00:00 IMPRESSION: SATISFACTORY POSITION OF ENDOTRACHEAL TUBE AND NASOGASTRIC TUBE. RIGHT IJ VENOUS CATHETER IS DEEP WITHIN THE RIGHT ATRIUM. RECOMMEND PULLING BACK APPROXIMATELY 6 CM. OTHERWISE STABLE APPEARANCE THE CHEST. KUB X-Ray 05/12/16 00:00 IMPRESSION: POSTSURGICAL CHANGE WITH NASOGASTRIC TUBE IN PLACE AND ADDITIONAL TUBING OVERLYING THE ABDOMEN PRESUMABLY REPRESENTS SURGICAL DRAINS. CORRELATE WITH EXAM. NO ADDITIONAL UNEXPECTED RADIOPAQUE FOREIGN BODY IDENTIFIED.
[2016-05-13 22:41] LABS: ANION GAP 9 (5-19); BLOOD UREA NITROGEN 19 mg/dL (7-20); CALCIUM 7.5 mg/dL (8.4-10.2); CARBON DIOXIDE 24 mmol/L (22-30); CHLORIDE 96 mmol/L (98-107); CREATININE RESULT 1.05 mg/dL (0.52-1.25); GLUCOSE 88 mg/dL (75-110); POTASSIUM 3.6 mmol/L (3.6-5.0); SODIUM 128.8 mmol/L (137-145)
[2016-05-13] MEDS: POTASSI CL 20 MEQ/D5NS 1L 1,000 ML IV PRN (23:09)
[2016-05-14] MEDS: IPRATROPIUM/ALBUTEROL 0.5-2.5 MG/3 ML AMPUL NEB SCH ×3 (00:26→17:04)
[2016-05-14] MEDS: MORPHINE SULFATE 10 MG/ML INJ IV PRN (01:16)
[2016-05-14] MEDS ORDERED: MORPHINE SULFATE 10 MG/ML INJ IV PRN (01:53)
[2016-05-14] MEDS: POTASSI CL 20 MEQ/D5NS 1L 1,000 ML IV PRN ×2 (03:05→08:00)
[2016-05-14] MEDS ORDERED: RINGERS SOLUTION,LACTATED 1,000 ML IV ONE (03:28)
[2016-05-14] MEDS: DEXTROSE 5%-WATER 250 ML with NOREPINEPHRINE BITARTRATE 4 MG IV PRN ×4 (04:40→16:44)
[2016-05-14] MEDS: PROPOFOL 100 ML IV PRN (05:09)
[2016-05-14] MEDS: CLINDAMYCIN 600 MG/D5W RTU 50 ML IV SCH ×2 (05:09→14:42)
[2016-05-14 05:38] LABS: ARTERIAL BLOOD O2 SATURATION 89.7 % (94-98)
[2016-05-14] MEDS ORDERED: NORMAL SALINE 1000 ML 2,000 ML IV ONE (05:49)
[2016-05-14 05:50] LABS: ALANINE AMINOTRANSFERASE 38 U/L (21-72); ALBUMIN 1.7 g/dL (3.5-5.0); ALKALINE PHOSPHATASE 106 U/L (38-126); ANION GAP 10 (5-19); ASPARTATE AMINO TRANSFERASE 89 U/L (17-59); BILIRUBIN,DIRECT 4.5 mg/dL (0.0-0.3); BILIRUBIN,TOTAL 6.7 mg/dL (0.2-1.3); BLOOD UREA NITROGEN 19 mg/dL (7-20); CALCIUM 7.2 mg/dL (8.4-10.2); CARBON DIOXIDE 21 mmol/L (22-30); CHLORIDE 101 mmol/L (98-107); CREATININE RESULT 0.98 mg/dL (0.52-1.25); GLUCOSE 117 mg/dL (75-110); POTASSIUM 3.6 mmol/L (3.6-5.0); SODIUM 131.6 mmol/L (137-145); TOTAL PROTEIN 3.9 g/dL (6.3-8.2)
[2016-05-14] MEDS ORDERED: PROMETHAZINE HCL INJ 25 MG/1 ML VIAL IV ONE (06:00)
[2016-05-14] MEDS ORDERED: PROMETHAZINE HCL INJ 25 MG/1 ML VIAL ONE (06:09)
[2016-05-14 06:33] LABS: HEMATOCRIT 32.2 % (37.9-51.0); HEMOGLOBIN 10.8 g/dL (13.5-17.0); HGB HCT DIFFERENCE 0.2; MEAN CORPUSCULAR HGB CONC 33.7 g/dL (32.0-36.0); MEAN CORPUSCULAR VOLUME 92 fl (80-97); WHITE BLOOD COUNT 6.5 10^3/uL (4.0-10.5)
[2016-05-14 06:58] LABS: BAND NEUTROPHILS % (MANUAL) 16 % (3-5); BASOPHILS % (MANUAL) 0 % (0-2); EOSINOPHILS % (MANUAL) 4 % (0-6); LYMPHOCYTES % (MANUAL) 49 % (13-45); NUCLEATED RED BLOOD CELLS 3 /100 WBC (0); TOTAL CELLS COUNTED 100
[2016-05-14 07:01] LABS: POLYCHROMASIA 1+; TARGET CELLS 1+; TOXIC GRANULATION SLIGHT; TOXIC VACUOLATION PRESENT
[2016-05-14 07:02] LABS: ANISOCYTOSIS 1+; BURR CELLS SLIGHT; OVALOCYTES SLIGHT
[2016-05-14] MEDS ORDERED: PHENYLEPHRINE HCL INJ/PF 10 MG/1 ML SDV ONE (07:44)
[2016-05-14] MEDS ORDERED: MIDAZOLAM HCL 100 ML IV PRN (08:15)
[2016-05-14] MEDS ORDERED: MIDAZOLAM HCL 100 ML IV ONE (08:17)
--- NOTE | 2016-05-14 08:31 | EKG REPORT ---
SEVERITY:- OTHERWISE NORMAL ECG - SINUS TACHYCARDIA LOW VOLTAGE IN FRONTAL LEADS OLD INFERIOR [place] : Confirmed by: Romeo Perez MD 14-May-2016 08:30:24
[2016-05-14] MEDS: MIDAZOLAM HCL 100 ML IV PRN ×3 (08:48→17:31)
[2016-05-14] MEDS: DEXTROSE 5%-WATER 250 ML with PHENYLEPHRINE HCL 40 MG IV PRN ×4 (09:05→17:31)
[2016-05-14] MEDS: THIAMINE HCL 100 MG, FOLIC ACID 1 MG in NORMAL SALINE 50 ML IV SCH (09:38)
[2016-05-14 10:18] LABS: ARTERIAL BLOOD BASE EXCESS -6.3 mmol/L; ARTERIAL BLOOD O2 SATURATION 91.1 % (94-98)
[2016-05-14] MEDS ORDERED: DEXTROSE 5%-WATER 1000 ML 1,000 ML with SODIUM BICARBONATE 100 MEQ IV PRN ×2 (10:52)
[2016-05-14 11:44] LABS: PROTHROMBIN TIME 19.2 SEC (11.4-15.4)
[2016-05-14] MEDS: ERTAPENEM SODIUM 1 GM in NORMAL SALINE 50 ML IV SCH (11:48)
--- NOTE | 2016-05-14 12:07 | PDOC PROGRESS REPORT ---
Subjective Progress Note for:: 05/14/16 Subjective:: Intubated sedated Physical Exam Vital Signs: Temp Pulse Resp BP Pulse Ox 98.6 F 125 H 16 95/69 L 100 05/14/16 10:00 05/14/16 11:00 05/14/16 10:00 05/14/16 10:00 05/14/16 11:10 Intake & Output 05/13/16 05/14/16 05/15/16 06:59 06:59 06:59 Intake Total 86732 81827 Output Total 3350 2675 550 Balance 7565 74729 -550 Weight 101 kg 109.5 kg General appearance: PRESENT: no acute distress Respiratory exam: PRESENT: other - Diffuse rhonchi and coarse breath sounds Cardiovascular exam: PRESENT: tachycardia GI/Abdominal exam: PRESENT: other - Anasarca, no erythema at the wound. Drains with serosanguineous nonbilious output. Unable to assess tenderness. Difficult to assess the distention with his anasarca. Results Laboratory Results: 05/14/16 05:22 05/14/16 05:22 05/13/16 05/13/16 05/13/16 16:55 16:55 22:15 WBC 4.7 RBC 3.31 L Hgb 10.5 L Hct 30.1 L MCV 91 MCH 31.7 MCHC 35.0 RDW 17.5 H Plt Count 83 L Seg Neutrophils % Not Reportable Lymphocytes % Not Reportable Monocytes % Not Reportable Eosinophils % Not Reportable Basophils % Not Reportable Absolute Neutrophils Not Reportable Absolute Lymphocytes Not Reportable Absolute Monocytes Not Reportable Absolute Eosinophils Not Reportable Absolute Basophils Not Reportable Carbonic Acid HCO3/H2CO3 Ratio ABG pH ABG pCO2 ABG pO2 ABG HCO3 ABG O2 Saturation ABG Base Excess FiO2 Sodium 131.2 L 128.8 L Potassium 3.5 L 3.6 Chloride 98 96 L Carbon Dioxide 24 24 Anion Gap 9 9 BUN 19 19 Creatinine 1.07 1.05 Est GFR ( Amer) > 60 > 60 Est GFR (Non-Af Amer) > 60 > 60 Glucose 84 88 Lactic Acid Calcium 7.2 L 7.5 L Magnesium 2.1 Total Bilirubin AST ALT Alkaline Phosphatase Total Protein Albumin 05/14/16 05/14/16 05/14/16 05:22 05:22 05:22 WBC 6.5 RBC 3.50 L Hgb 10.8 L Hct 32.2 L MCV 92 MCH 31.0 MCHC 33.7 RDW 17.0 H Plt Count 77 L Seg Neutrophils % Not Reportable Lymphocytes % Not Reportable Monocytes % Not Reportable Eosinophils % Not Reportable Basophils % Not Reportable Absolute Neutrophils Not Reportable Absolute Lymphocytes Not Reportable Absolute Monocytes Not Reportable Absolute Eosinophils Not Reportable Absolute Basophils Not Reportable Carbonic Acid 1.34 HCO3/H2CO3 Ratio 15:1 ABG pH 7.28 L ABG pCO2 44.5 ABG pO2 63.8 L ABG HCO3 20.5 ABG O2 Saturation 89.7 L ABG Base Excess -6.0 FiO2 25% Sodium 131.6 L Potassium 3.6 Chloride 101 Carbon Dioxide 21 L Anion Gap 10 BUN 19 Creatinine 0.98 Est GFR ( Amer) > 60 Est GFR (Non-Af Amer) > 60 Glucose 117 H Lactic Acid Calcium 7.2 L Magnesium 2.0 Total Bilirubin 6.7 H AST 89 H ALT 38 Alkaline Phosphatase 106 Total Protein 3.9 L Albumin 1.7 L 05/14/16 05/14/16 09:58 11:10 WBC RBC Hgb Hct MCV MCH MCHC RDW Plt Count Seg Neutrophils % Lymphocytes % Monocytes % Eosinophils % Basophils % Absolute Neutrophils Absolute Lymphocytes Absolute Monocytes Absolute Eosinophils Absolute Basophils Carbonic Acid 1.37 H HCO3/H2CO3 Ratio 14:1 ABG pH 7.27 L ABG pCO2 45.4 H ABG pO2 68.1 L ABG HCO3 20.4 ABG O2 Saturation 91.1 L ABG Base Excess -6.3 FiO2 25% Sodium Potassium Chloride Carbon Dioxide Anion Gap BUN Creatinine Est GFR ( Amer) Est GFR (Non-Af Amer) Glucose Lactic Acid 3.2 H Calcium Magnesium Total Bilirubin AST ALT Alkaline Phosphatase Total Protein Albumin 05/12/16 04:56 [place] Catheter Urine Culture - Final NO GROWTH 2 DAYS 05/12/16 05/12/16 05/12/16 04:56 04:56 10:40 Creatine Kinase 51 L 45 L CK-MB (CK-2) 1.68 Troponin I 0.037 05/12/16 05/12/16 05/13/16 10:40 10:40 20:09 Creatine Kinase CK-MB (CK-2) 1.03 Troponin I 0.045 0.015 Impressions: Abdomen/Pelvis CT 05/11/16 22:27 IMPRESSION: CT FINDINGS COMPATIBLE WITH BOWEL PERFORATION WHICH EITHER INVOLVES THE TRANSVERSE COLON OR IN ADJACENT LOOP OF SMALL BOWEL WITH THERE IS PNEUMATOSIS AND FREE INTRAPERITONEAL AIR ALONG WITH MILD TO MODERATE ASCITES. SURGICAL CONSULTATION IS RECOMMENDED. ADDITIONAL NOTE MADE OF FLUID WOULD IN SUBCUTANEOUS GAS INVOLVING THE MEDIAL RIGHT UPPER EXTREMITY. CORRELATE WITH PHYSICAL EXAM FINDINGS. SEVERE HEPATIC STEATOSIS. CHOLELITHIASIS. KUB X-Ray 05/12/16 00:00 IMPRESSION: POSTSURGICAL CHANGE WITH NASOGASTRIC TUBE IN PLACE AND ADDITIONAL TUBING OVERLYING THE ABDOMEN PRESUMABLY REPRESENTS SURGICAL DRAINS. CORRELATE WITH EXAM. NO ADDITIONAL UNEXPECTED RADIOPAQUE FOREIGN BODY IDENTIFIED. Chest X-Ray 05/14/16 06:00 IMPRESSION: LOW LUNG VOLUMES WITH INCREASING LOWER LOBE INFILTRATES, CONSIDER PNEUMONIA VERSUS ASYMMETRIC PULMONARY EDEMA. Assessment & Plan - Diagnosis (1) Perforated duodenal ulcer Is this a current diagnosis for this admission?: YesPlan: Status post drainage and closure. Patient with the sepsis and multiorgan failure and possible alcohol withdrawal. Agree with transfer to tertiary care center for optimal management.
[2016-05-14 12:42] LABS: ARTERIAL BLOOD BASE EXCESS -5.7 mmol/L; ARTERIAL BLOOD O2 SATURATION 97.6 % (94-98)
--- NOTE | 2016-05-14 14:40 | PDOC TRANSFER SUMMARY ---
General Admission Date/PCP: 05/11/16 23:16 Transfer Date: 05/14/16 Accepting Facility: [facility] Accepting Physician: dr jackson Resuscitation Status: Full Code - Transfer Diagnosis (1) Perforated duodenal ulcer Is this a current diagnosis for this admission?: YesDiagnosis Summary: with severe peritonitis s/p duodenal patch/closure, partial omentectomy and extensive lavage/washout of the abdominal cavity. ROMINA drains remain in place with consistent output. Awaiting return of bowel function. (2) Pneumatosis intestinalis Is this a current diagnosis for this admission?: YesDiagnosis Summary: as above (3) Septic shock Is this a current diagnosis for this admission?: YesDiagnosis Summary: 2/2 above; remains on volume resuscitation with NaHCO3 gtt at 150 ml/hr, levophed at 12mcg and eloy at 8mcg to maintain MAP >60. overall condition deteriorating. transfer to tertiary center arranged, awaiting bed (4) Metabolic acidosis Is this a current diagnosis for this admission?: YesDiagnosis Summary: severe lactic acidosis initially 17 down to 3.2 this morning though his HCO3 now trending down as well and complicating his volume and respiratory status. started bicarb gtt this morning. (5) Acute renal failure Is this a current diagnosis for this admission?: YesDiagnosis Summary: 2/2 above, resolved with massive fluid resuscitation and has reasonably good uop >30ml/hr (6) Alcohol abuse Is this a current diagnosis for this admission?: YesDiagnosis Summary: large volume hard liquor use, was drinking the morning he presented to the ED so last consumption on Wednesday meaning we are likely headed into withdrawal, probably contributing to his tachycardia. versed gtt started this morning. thiamine by IV. this will complicate his recovery. reports severe withdrawal and seizures in the past. (7) Hyponatremia Is this a current diagnosis for this admission?: YesDiagnosis Summary: stable, reached a lázaro of 128, now 131.6 and likely chronic related to his ETOH consumption. (8) Anemia Is this a current diagnosis for this admission?: YesDiagnosis Summary: 2/2 above; s/p large volume transfusion of PRBCs right at 6 units. H/H now stable with HCT >30. (9) Hypomagnesemia Is this a current diagnosis for this admission?: YesDiagnosis Summary: 1.3 at presentation, s/p 6gm IV Mag Sulfate and improved to 2.0 this morning. (10) DIC (disseminated intravascular coagulation) Is this a current diagnosis for this admission?: YesDiagnosis Summary: INR peaked at 2.08 and now 1.55, plts still falling from peak of 189 at presentation to 77 now. heparin products already on hold. (11) Nutrition disorder Is this a current diagnosis for this admission?: YesDiagnosis Summary: awaiting bowel function and no TPN due to multiple pressors, bicarb gtt, etc. - Transfer Medications Home Medications: Ascorbic Acid [Vitamin C 500 mg Tablet] 500 mg PO DAILY 05/12/16 Ergocalciferol (Vitamin D2) [Drisdol 50,000 unit (1.25MG) Capsule] 50,000 units PO Q7D 05/12/16 Ferrous Sulfate 324 mg PO DAILY 05/12/16 Furosemide [Lasix] 40 mg PO DAILY 05/12/16 Magnesium Oxide [Mag-Ox 400 mg Tablet] 800 mg PO BID 05/12/16 Meloxicam [Mobic 15 mg Tablet] 15 mg PO DAILY 05/12/16 Metoprolol Tartrate [Lopressor 50 mg Tablet] 50 mg PO BID 05/12/16 Potassium Chloride 20 meq PO DAILY 05/12/16 Sildenafil Citrate [Viagra] 100 mg PO DAILY PRN 05/12/16 Tramadol HCl 50 mg PO TIDP PRN 05/12/16 Transfer Medications: Current Medications Albuterol/Ipratropium (Duoneb 3 Ml Ampul) 3 ml NEB RTQ8 JOSE RAFAEL Stop: 06/11/16 00:00 Last Admin: 05/14/16 08:31 Dose: 3 ml Dextrose (Dextrose Inj 50% Syringe (25 Gm/50 Ml)) 12.5 gm IV PRN PRN; Protocol PRN Reason: FOR BG 50-69 IN ALERT PATIENT Stop: 06/10/16 23:21 Dextrose (Dextrose Inj 50% Syringe (25 Gm/50 Ml)) 25 gm IV PRN PRN PRN Reason: Protocol Stop: 06/10/16 23:21 Last Admin: 05/12/16 06:18 Dose: 25 gm Glucagon (Glucagen Inj 1 Mg Vial) 1 mg IM PRN PRN; Protocol PRN Reason: Evaluate for BG < 70 Stop: 06/10/16 23:21 Glucose (Glutose 40% Gel 15 Gm Tube) 15 gm PO PRN PRN; Protocol PRN Reason: FOR BG 50-69 IN ALERT PATIENT Stop: 06/10/16 23:21 Glucose (Glutose 40% Gel 15 Gm Tube) 30 gm PO PRN PRN; Protocol PRN Reason: FOR BG < 50 IN ALERT PATIENT Stop: 06/10/16 23:21 Thiamine HCl 100 mg/ Folic (Acid 1 mg/ Sodium Chloride) 51.2 mls @ 100 mls/hr IV DAILY [facility] Stop: 06/10/16 23:29 Last Admin: 05/14/16 09:38 Dose: 100 mg Ertapenem 1 gm/ Sodium (Chloride) 50 mls @ 100 mls/hr IV NOON [facility] Stop: 05/19/16 11:59 Last Admin: 05/14/16 11:48 Dose: 1 gm Norepinephrine Bitartrate 4 mg (/ Dextrose) 254 mls @ 0 mls/hr IV CONTINUOUS PRN; Protocol; Titrate PRN Reason: THIS MED IS NOT "PRN" Stop: 06/10/16 23:13 Last Admin: 05/14/16 04:40 Dose: 4 mg Clindamycin Phosphate/Dextrose (Cleocin Rtu 600 Mg/D5w 50 Ml Premix) 50 mls @ 50 mls/hr IV Q8 [facility] Stop: 05/20/16 21:59 Last Admin: 05/14/16 05:09 Dose: 50 ml Hard Fat/Phenylephrine 40 mg/ (Dextrose) 254 mls @ 0 mls/hr IV CONTINUOUS PRN; Protocol; Titrate PRN Reason: THIS MED IS NOT "PRN" Stop: 06/12/16 18:47 Last Admin: 05/14/16 09:05 Dose: 40 mg Midazolam HCl (Versed Rtu 50 Mg/100 Ml Premix Bag) 100 mls @ 0 mls/hr IV CONTINUOUS PRN; Protocol; Titrate PRN Reason: THIS MED IS NOT "PRN" Stop: 05/21/16 08:14 Last Admin: 05/14/16 08:48 Dose: 100 ml Sodium Bicarbonate 100 meq/ (Dextrose) 1,100 mls @ 150 mls/hr IV CONTINUOUS PRN PRN Reason: THIS MED IS NOT "PRN" Stop: 06/13/16 10:51 Last Admin: 05/14/16 12:06 Dose: 100 meq Insulin Human Lispro (Humalog Insulin 100 Unit/1 Ml 3 Ml Vial) 0 - 12 unit SUBCUT Q6HP PRN PRN Reason: Protocol Stop: 06/10/16 23:21 Morphine Sulfate (Morphine 10 Mg/Ml Inj) 2 mg IV Q2HP PRN PRN Reason: FOR PAIN Stop: 05/21/16 01:51 Last Admin: 05/14/16 02:26 Dose: 2 mg Ondansetron HCl (Zofran Inj/Pf 4 Mg/2 Ml Sdv) 4 mg IV Q8HP PRN Stop: 06/10/16 23:14 - Allergies Allergies/Adverse Reactions: No Known Allergies Allergy (Unverified 04/28/16 12:45) - Diet/Activity Discharge Diet: Other (Comments) - NPO Discharge Activity: Bedrest Hospital Course Hospital Course: CHARLES LEVY is a 60 year old male with history of alcohol dependence up to half a gallon of rum per day and alcohol withdrawal DTs. Presenting to the emergency room after approximately 24 hours of altered mental status noted by family brought to the emergency room for evaluation. Noted to be obtunded with abdominal distention. CT scan was performed without oral and IV contrast because status, abdominal distention, and profound metabolic acidosis with acute renal insufficiency. This revealed massive free air with pneumatosis intestinalis. The patient was started on IV fluids, and levophed. Surgery was consulted. Patient was admitted to the hospitalist service. The patient was evaluated in the emergency department by surgeon where he remained in septic shock with a distended abdomen. He underwent fluid resuscitation in the emergency department, and an nasogastric tube insertion. Because of widespread pneumoperitoneum consistent with visceral perforation the patient was taken to the operating room for emergent laparotomy and necessary surgery. This was explained to the patient's and sister. They expressed understanding and agreed to Proceed. he underwent successful exp lap with duodenal patch and closure and partial omentectomy with large volume lavage of stool and purulent fluid throughout the abdominal cavity. He has remained intubated on the ventilator but due to the large volume fluid resuscitation of his septic shock he is now developing pulmonary edema and worsening metabolic acidosis requiring frequent adjustments to his mechanical support. Stat EKG and troponin postoperatively did not show any ischemic changes to suggest perioperative cardiac ischemia. He was in our hospital in late April with evaluation of anemia and hyponatremia and underwent an echocardiogram on 04/28/2016 showed well-preserved left ventricular ejection fraction with mild concentric left ventricular hypertrophy no wall motion abnormalities detected who was a poor quality study no atrial enlargement, trace MR but no other valvular abnormalities, no pericardial effusion, no evidence of pulmonary hypertension. He has remained on Invanz since his surgery with clindamycin added yesterday as his condition continued to deteriorate in an effort to more adequately cover anaerobic organisms. He has required large volume fluid resuscitation and is a positive fluid balance of greater than 8 L, in spite of that he is requiring levo fed and Eloy- Synephrine to maintain a mean arterial pressure consistently greater than 60. He was initially in renal failure with serum creatinine peaked at 2.17 but after massive fluid resuscitation has returned to his baseline at 0.98. His urine output initially was scant but has improved to greater than a liter in the last 12 hours. Overall his condition continues to deteriorate and the family is requesting that we make all efforts to treat. Since I do not have access to pulmonary or critical care support I reached out to Dr. Jackson at [facility] who graciously accepted him in transfer awaiting bed placement. Given the critical nature of his illness he will need air transport if conditions allow, otherwise will require ACLS transport. He is at great risk of decompensation during transport, this was explained to the family and they are willing to accept this risk. He is appropriate for transfer to a tertiary care center where a full battery of subspecialist support is available to help resuscitate he is evolving multisystem organ failure. Given the severity of his septic shock developing multisystem organ failure he is at grave risk of significant morbidity and mortality, I explained to the family and is unlikely he will survive this event and if he does it is unclear what his condition will be at that time. They expressed understanding and are appreciative of our efforts here, even more so of our efforts to get him transported to tertiary center. All questions were asked and answered to the best of my ability. They seem satisfied with care he's received so far. Physical Exam Vital Signs: Temp Pulse Resp BP Pulse Ox 98.4 F 98 20 109/78 100 05/14/16 12:00 05/14/16 12:00 05/14/16 12:00 05/14/16 12:00 05/14/16 12:19 Intake & Output 05/13/16 05/14/16 05/15/16 06:59 06:59 06:59 Intake Total 82976 [id number] Output Total 7060 3377 800 Balance 7523 12030 -800 Weight 101 kg 109.5 kg EXAM GENERAL: NAD; well developed, well nourished; mild obese; sedated and intubated HEENT: normocephalic, atraumatic; bilateral conjunctival injection, no scleral icterus; oral mucosa dry; ETT in good position, trachea midline RESPIRATORY: no accessory muscle use, increased WOB and at times appears air hungry, decreased air entry bilaterally with rales but no rhonchi or wheezes; remains on mechanical ventilation with good peak pressures, current settings are SIMV of 20, tidal volume of 500, pressure support of 12, PEEP of 8, FiO2 of 50% CARDIO: no JVD; RRR; no systolic murmur; persistent sinus tachycardia with ventricular rate in the 110 to 130s GI: soft; mild distended; no bowel sounds; multiple ROMINA drains in place draining serosanguineous fluid, approximately >200 ML's overnight.; no rigidity , or involuntary guarding VASCULAR: no carotid bruit; no abdominal bruit; no pallor; 2+ radial, DP pulse ; normal capillary refill EXTREMITIES: no palpable cords in calf; no clubbing, cyanosis; at least 2+ bilateral pitting and nonpitting edema from the feet along the posterior surfaces and all dependent tissues PSYCH: Unable to assess SKIN: warm; moist; no petechiae; no telengectasias; no jaundice; no rash, very pale NEURO: 2+ patella reflexes Results Laboratory Results: 05/14/16 05:22 05/14/16 05:22 05/13/16 05/13/16 05/13/16 16:55 16:55 22:15 WBC 4.7 RBC 3.31 L Hgb 10.5 L Hct 30.1 L MCV 91 MCH 31.7 MCHC 35.0 RDW 17.5 H Plt Count 83 L Seg Neutrophils % Not Reportable Lymphocytes % Not Reportable Monocytes % Not Reportable Eosinophils % Not Reportable Basophils % Not Reportable Absolute Neutrophils Not Reportable Absolute Lymphocytes Not Reportable Absolute Monocytes Not Reportable Absolute Eosinophils Not Reportable Absolute Basophils Not Reportable Carbonic Acid HCO3/H2CO3 Ratio ABG pH ABG pCO2 ABG pO2 ABG HCO3 ABG O2 Saturation ABG Base Excess FiO2 Sodium 131.2 L 128.8 L Potassium 3.5 L 3.6 Chloride 98 96 L Carbon Dioxide 24 24 Anion Gap 9 9 BUN 19 19 Creatinine 1.07 1.05 Est GFR ( Amer) > 60 > 60 Est GFR (Non-Af Amer) > 60 > 60 Glucose 84 88 Lactic Acid Calcium 7.2 L 7.5 L Magnesium 2.1 Total Bilirubin AST ALT Alkaline Phosphatase Total Protein Albumin 05/14/16 05/14/16 05/14/16 05:22 05:22 05:22 WBC 6.5 RBC 3.50 L Hgb 10.8 L Hct 32.2 L MCV 92 MCH 31.0 MCHC 33.7 RDW 17.0 H Plt Count 77 L Seg Neutrophils % Not Reportable Lymphocytes % Not Reportable Monocytes % Not Reportable Eosinophils % Not Reportable Basophils % Not Reportable Absolute Neutrophils Not Reportable Absolute Lymphocytes Not Reportable Absolute Monocytes Not Reportable Absolute Eosinophils Not Reportable Absolute Basophils Not Reportable Carbonic Acid 1.34 HCO3/H2CO3 Ratio 15:1 ABG pH 7.28 L ABG pCO2 44.5 ABG pO2 63.8 L ABG HCO3 20.5 ABG O2 Saturation 89.7 L ABG Base Excess -6.0 FiO2 25% Sodium 131.6 L Potassium 3.6 Chloride 101 Carbon Dioxide 21 L Anion Gap 10 BUN 19 Creatinine 0.98 Est GFR ( Amer) > 60 Est GFR (Non-Af Amer) > 60 Glucose 117 H Lactic Acid Calcium 7.2 L Magnesium 2.0 Total Bilirubin 6.7 H AST 89 H ALT 38 Alkaline Phosphatase 106 Total Protein 3.9 L Albumin 1.7 L 05/14/16 05/14/16 05/14/16 09:58 11:10 12:28 WBC RBC Hgb Hct MCV MCH MCHC RDW Plt Count Seg Neutrophils % Lymphocytes % Monocytes % Eosinophils % Basophils % Absolute Neutrophils Absolute Lymphocytes Absolute Monocytes Absolute Eosinophils Absolute Basophils Carbonic Acid 1.37 H 1.14 HCO3/H2CO3 Ratio 14:1 17:1 ABG pH 7.27 L 7.33 L ABG pCO2 45.4 H 38.0 ABG pO2 68.1 L 107.4 H ABG HCO3 20.4 19.7 L ABG O2 Saturation 91.1 L 97.6 ABG Base Excess -6.3 -5.7 FiO2 25% 50% Sodium Potassium Chloride Carbon Dioxide Anion Gap BUN Creatinine Est GFR ( Amer) Est GFR (Non-Af Amer) Glucose Lactic Acid 3.2 H Calcium Magnesium Total Bilirubin AST ALT Alkaline Phosphatase Total Protein Albumin 05/12/16 04:56 [place] Catheter Urine Culture - Final NO GROWTH 2 DAYS 05/12/16 05/12/16 05/12/16 04:56 04:56 10:40 Creatine Kinase 51 L 45 L CK-MB (CK-2) 1.68 Troponin I 0.037 05/12/16 05/12/16 05/13/16 10:40 10:40 20:09 Creatine Kinase CK-MB (CK-2) 1.03 Troponin I 0.045 0.015 Labs reviewed Impressions: Abdomen/Pelvis CT 05/11/16 22:27 IMPRESSION: CT FINDINGS COMPATIBLE WITH BOWEL PERFORATION WHICH EITHER INVOLVES THE TRANSVERSE COLON OR IN ADJACENT LOOP OF SMALL BOWEL WITH THERE IS PNEUMATOSIS AND FREE INTRAPERITONEAL AIR ALONG WITH MILD TO MODERATE ASCITES. SURGICAL CONSULTATION IS RECOMMENDED. ADDITIONAL NOTE MADE OF FLUID WOULD IN SUBCUTANEOUS GAS INVOLVING THE MEDIAL RIGHT UPPER EXTREMITY. CORRELATE WITH PHYSICAL EXAM FINDINGS. SEVERE HEPATIC STEATOSIS. CHOLELITHIASIS. KUB X-Ray 05/12/16 00:00 IMPRESSION: POSTSURGICAL CHANGE WITH NASOGASTRIC TUBE IN PLACE AND ADDITIONAL TUBING OVERLYING THE ABDOMEN PRESUMABLY REPRESENTS SURGICAL DRAINS. CORRELATE WITH EXAM. NO ADDITIONAL UNEXPECTED RADIOPAQUE FOREIGN BODY IDENTIFIED. Chest X-Ray 05/14/16 06:00 IMPRESSION: LOW LUNG VOLUMES WITH INCREASING LOWER LOBE INFILTRATES, CONSIDER PNEUMONIA VERSUS ASYMMETRIC PULMONARY EDEMA. Status: Image reviewed by me Plan Discharge Plan: Transfer to tertiary care center for ongoing care. Time Spent: Greater than 30 Minutes
[2016-05-14 18:20] VITALS: BP 106/76
== END 2016-05-14 18:35 | disposition short-term general hospital (02) | DRG 853 ==
LOC: ER 19:02 → EH 23:16 → UNDOADMIN 23:43 → EH 05-12 04:07
PROVIDERS: ADMIT Internal Medicine; ATTEND Internal Medicine
PROC: 3E043XZ Introduction of Vasopressor into Central Vein, Percutaneous Approach (ICD-10-PCS; 2016-05-11)
PROC: 0DBS0ZZ (ICD-10-PCS; 2016-05-12)
PROC: 0DB90ZX Excision of Duodenum, Open Approach, Diagnostic (ICD-10-PCS; 2016-05-12)
PROC: 0D9W00Z Drainage of Peritoneum with Drainage Device, Open Approach (ICD-10-PCS; 2016-05-12)
PROC: 30233K1 Transfusion of Nonautologous Frozen Plasma into Peripheral Vein, Percutaneous Approach (ICD-10-PCS; 2016-05-12)
PROC: 30233N1 Transfusion of Nonautologous Red Blood Cells into Peripheral Vein, Percutaneous Approach (ICD-10-PCS; 2016-05-12)
PROC: 0BH17EZ Insertion of Endotracheal Airway into Trachea, Via Natural or Artificial Opening (ICD-10-PCS; 2016-05-12)
PROC: 5A1945Z Respiratory Ventilation, 24-96 Consecutive Hours (ICD-10-PCS; 2016-05-12)
PROC: 02H633Z Insertion of Infusion Device into Right Atrium, Percutaneous Approach (ICD-10-PCS; 2016-05-12)
PROC: 0DQ90ZZ Repair Duodenum, Open Approach (ICD-10-PCS; principal; 2016-05-12 02:00)
DX: A41.9 Sepsis, unspecified organism (principal); R65.21 Severe sepsis with septic shock; K26.5 Chronic or unspecified duodenal ulcer with perforation; K65.9 Peritonitis, unspecified; K70.41 Alcoholic hepatic failure with coma; D65 Disseminated intravascular coagulation [defibrination syndrome]; N17.9 Acute kidney failure, unspecified; R18.8 Other ascites; E72.20 Disorder of urea cycle metabolism, unspecified; E87.1 Hypo-osmolality and hyponatremia; E87.2 Acidosis; F10.231 Alcohol dependence with withdrawal delirium; K63.89 Other specified diseases of intestine; I10 Essential (primary) hypertension; F10.20 Alcohol dependence, uncomplicated; K70.30 Alcoholic cirrhosis of liver without ascites; E83.42 Hypomagnesemia; D64.9 Anemia, unspecified; Z75.1 Person awaiting admission to adequate facility elsewhere
CPT/HCPCS: 36415; 36430; 36600; 71010; 74000; 74176; 790; 80048; 80053; 81001; 82140; 82550; 82553; 82803; 82962; 83605; 83735; 84100; 84478; 84484; 85025; 85610; 86850; 86900; 86901; 86920; 87040; 87086; 88305; 88342; 93005; 93010; 94002; 94003; 94640; 96361; 96374; 96375; 99291; 99292; C1751; J0330; J0694; J1170; J1335; J1815; J2060; J2250; J2270; J2370; J2550; J2704; J3010; J3411; J3475; J3480; J3490; J7030; J7060; J7120; J7620; P9016; P9017; P9047